=== PATIENT | male | born 1940 | race Caucasian/White ===

== ENCOUNTER 2020-04-06 07:54 | Inpatient (IN) ==
[2020-04-06] MEDS ORDERED: *HR* FentaNYL (PF) 100 MCG/2 ML VIAL IVP ONE (08:41)
[2020-04-06 09:14] LABS: Bilirubin,Urine Negative (Negative); Blood,Urine Negative (Negative); Clarity,Urine Clear (Clear); Color,Urine Yellow (Yellow); Glucose,Urine (UA) Normal (Normal); Ketones,Urine Negative (Negative); Leukocyte Esterase,Urine Negative (Negative); Nitrite,Urine Negative (Negative); Protein,Urine 70 mg/dL (Neg-Trace); Squamous Epithelial Cell,Urine Few per hpf (None-Few); Urobilinogen,Urine Normal (Normal); WBC,Urine 0-3 per hpf (0-3)
[2020-04-06 09:14] LABS: Basophils % 0.2 %
[2020-04-06 09:16] LABS: Hematocrit 33.6 % (37.5-50.1); Hemoglobin 10.5 g/dL (12.9-16.9); Immature Granulocytes % 2.9 % (0-4); Immature Platelets 10.2 % (1.1-6.1); Lymphocytes # 0.3 K/mcL (0.6-4.6); Lymphocytes % 2.7 %; Mean Corpuscular HGB Conc 31.3 g/dL (31.6-35.5); Mean Corpuscular Hemoglobin 31.6 pg (28.0-33.3); Mean Corpuscular Volume 101.2 fL (83.0-100.0); Mean Platelet Volume 12.6 fL (9.4-12.4); Monocytes # 0.8 K/mcL (0.0-1.3); Monocytes % 8.1 %; Red Blood Count 3.32 M/mcL (4.19-5.50); Red Cell Distribution Width 14.5 % (11.5-14.5); Segmented Neutrophils % 86.1 %; White Blood Count 10.4 K/mcL (4.3-11.1)
[2020-04-06 09:17] LABS: Platelet Count 71 K/mcL (140-400)
[2020-04-06 09:23] LABS: Activated Partial Thrombo Time 39.7 Seconds (26.0-36.0)
[2020-04-06 09:29] LABS: Prothrombin Time 48.1 Seconds (9.4-12.1)
[2020-04-06 09:30] LABS: Calcium 8.8 mg/dL (8.6-10.3); INR 4.3
[2020-04-06 09:31] LABS: Albumin 3.6 g/dL (3.5-5.7); Albumin/Globulin Ratio 0.9 (1.1-2.2); Bilirubin,Direct 0.3 mg/dL (0.0-0.2); Bilirubin,Indirect 0.5 mg/dL (0.0-1.0); Bilirubin,Total 0.8 mg/dL (0.3-1.0); Globulin 3.9 g/dL (2.4-3.5); Total Protein 7.5 g/dL (6.4-8.9)
[2020-04-06] MEDS ORDERED: Piperacillin/Tazobactam 3.375 GM in 0.9 % Sodium Chloride Mini Bag 100 ML IVPB ONE (14:02)
[2020-04-06] MEDS ORDERED: Naloxone 0.4 MG/ML INJ IVP PRN (15:01)
[2020-04-06] MEDS ORDERED: Acetaminophen 325 MG TABLET PO PRN ×2 (15:01→16:24)
[2020-04-06] MEDS ORDERED: *HR* HYDROcodone/Acet 5/325 mg TABLET PO PRN ×2 (15:01→16:24)
[2020-04-06] MEDS ORDERED: Ondansetron 4 MG/2 ML VIAL IVP PRN (15:01)
[2020-04-06] MEDS ORDERED: 0.9 % Sodium Chloride 500 ML IVC SCH (15:15)
[2020-04-06] MEDS ORDERED: *HR* HYDROcodone/Acet 5/325 mg TABLET PO STA (16:30)
[2020-04-06] MEDS ORDERED: Famotidine 20 MG/2 ML VIAL IVP ONE (16:53)
[2020-04-06] MEDS ORDERED: Acetaminophen IV 1,000 MG/100 ML INFUS..BTL IVPB ONE (18:11)
[2020-04-06] MEDS: Ketorolac OPTH Soln 5 ML BOTTLE RIGHT EYE SCH (21:00)
[2020-04-06] MEDS: Dexamethasone OPTH Drop 5 ML BOTTLE RIGHT EYE SCH (21:00)
[2020-04-06] MEDS: *HR* HYDROcodone/Acet 5/325 mg TABLET PO PRN (23:15)
[2020-04-06 23:58] LABS: Acinetobacter baumannii by PCR Not Detected (Not Detect); Enterobacter cloacae Cmplx PCR Not Detected (Not Detect); Enterobacteriaceae by PCR Not Detected (Not Detect); Enterococcus by PCR Not Detected (Not Detect); Escherichia coli by PCR Not Detected (Not Detect); Staphylococcus aureus by PCR Not Detected (Not Detect); Staphylococcus by PCR Not Detected (Not Detect); Streptococcus agalactiae(B)PCR DETECTED (Not Detect); Streptococcus by PCR DETECTED (Not Detect); Streptococcus pneumoniae PCR Not Detected (Not Detect); Streptococcus pyogenes (A) PCR Not Detected (Not Detect)
[2020-04-06 23:59] LABS: Candida albicans by PCR Not Detected (Not Detect); Candida glabrata by PCR Not Detected (Not Detect); Candida krusei by PCR Not Detected (Not Detect); Candida parapsilosis by PCR Not Detected (Not Detect); Candida tropicalis by PCR Not Detected (Not Detect); Klebsiella oxytoca by PCR Not Detected (Not Detect); Klebsiella pneumoniae by PCR Not Detected (Not Detect); Proteus by PCR Not Detected (Not Detect); Pseudomonas aeruginosa by PCR Not Detected (Not Detect); Serratia marcescens by PCR Not Detected (Not Detect)
[2020-04-07] MEDS: *HR* HYDROcodone/Acet 5/325 mg TABLET PO PRN (06:51)
[2020-04-07] MEDS ORDERED: Perflutren Lipid Microsphere 1.3 ML in 0.9 % Sodium Chloride 8.7 ML IVP PRN (07:35)
[2020-04-07] MEDS: Acetaminophen 325 MG TABLET PO PRN ×2 (07:38→17:57)
[2020-04-07] MEDS: Ketorolac OPTH Soln 5 ML BOTTLE RIGHT EYE SCH ×2 (07:46→19:43)
[2020-04-07] MEDS: Dexamethasone OPTH Drop 5 ML BOTTLE RIGHT EYE SCH ×2 (07:46→19:43)
[2020-04-07] MEDS ORDERED: Vancomycin 1,500 MG/265 ML IV.SOLN IVPB ONE (09:00)
[2020-04-07 09:07] LABS: Basophils % 0.5 %; Hematocrit 32.4 % (37.5-50.1); Hemoglobin 10.5 g/dL (12.9-16.9); Immature Granulocytes % 1.5 % (0-4); Lymphocytes # 0.2 K/mcL (0.6-4.6); Lymphocytes % 2.6 %; Mean Corpuscular HGB Conc 32.4 g/dL (31.6-35.5); Mean Corpuscular Hemoglobin 31.8 pg (28.0-33.3); Mean Corpuscular Volume 98.2 fL (83.0-100.0); Monocytes # 0.2 K/mcL (0.0-1.3); Monocytes % 3.1 %; Red Cell Distribution Width 14.6 % (11.5-14.5); Segmented Neutrophils % 92.3 %; White Blood Count 5.9 K/mcL (4.3-11.1)
[2020-04-07 09:10] LABS: Neutrophils # 5.5 K/mcL (1.6-8.9); Platelet Count 60 K/mcL (140-400)
[2020-04-07 09:12] LABS: Albumin 3.5 g/dL (3.5-5.7); Albumin/Globulin Ratio 0.9 (1.1-2.2); Bilirubin,Total 1.2 mg/dL (0.3-1.0); Calcium 8.8 mg/dL (8.6-10.3); Chol/HDL Ratio 3.2 (0-4.9); Globulin 3.9 g/dL (2.4-3.5); Magnesium 1.9 mg/dL (1.6-2.6); Potassium 4.2 mEq/L (3.5-5.1); Total Protein 7.4 g/dL (6.4-8.9)
[2020-04-07 09:14] LABS: INR 5.7; Prothrombin Time 62.6 Seconds (9.4-12.1)
[2020-04-07 09:23] LABS: Thyroid Stimulating Hormone 4.158 mcIU/mL (0.340-5.600)
[2020-04-07 09:27] LABS: Large Platelets Present (Not Present); Platelet Estimate Decreased (Normal); Toxic Granulation Present (Not Present)
[2020-04-07 09:28] LABS: Troponin I 0.48 ng/mL (< 0.04)
[2020-04-07 09:32] LABS: Estimated Average Glucose 126 mg/dl
[2020-04-07 10:16] LABS: Adenovirus Not Detected (Not Detect); Bordetella Pertussis Not Detected (Not Detect); Chlamydophila pneumoniae Not Detected (Not Detect); Coronavirus 229E Not Detected (Not Detect); Coronavirus HKU1 Not Detected (Not Detect); Coronavirus NL63 Not Detected (Not Detect); Coronavirus OC43 Not Detected (Not Detect); Human Metapneumovirus Not Detected (Not Detect); Human Rhinovirus/Enterovirus Not Detected (Not Detect); Influenza A Subtype 2009 H1 Not Detected (Not Detect); Influenza B Not Detected (Not Detect); Mycoplasma pneumoniae Not Detected (Not Detect); Parainfluenza Virus 1 Not Detected (Not Detect); Parainfluenza Virus 2 Not Detected (Not Detect); Parainfluenza Virus 3 Not Detected (Not Detect); Parainfluenza Virus 4 Not Detected (Not Detect); Respiratory Syncytial Virus Not Detected (Not Detect); SARS-CoV-2 Not Detected (Not Detect)
[2020-04-07] MEDS ORDERED: Aspirin Enteric Coated 81 MG Tablet PO SCH (12:00)
[2020-04-07] MEDS: Cefepime HCl 2,000 MG in 0.9 % Sodium Chloride Mini Bag 100 ML IVPB SCH (12:04)
[2020-04-07] MEDS: Metoprolol XL (24 HR) Succ 25 MG TAB.ER.24H PO SCH (12:17)
[2020-04-07] MEDS ORDERED: Piperacillin/Tazobactam 3.375 GM in 0.9 % Sodium Chloride Mini Bag 100 ML IVPB SCH ×2 (16:00)
[2020-04-07] MEDS: MetroNIDAZOLE 500 MG/100 ML 500 MG/100 ML BAG IVPB SCH ×2 (17:14→23:38)
[2020-04-07] MEDS ORDERED: MetroNIDAZOLE 500 MG/100 ML 500 MG/100 ML BAG IVPB SCH (18:00)
[2020-04-08] MEDS: Cefepime HCl 2,000 MG in 0.9 % Sodium Chloride Mini Bag 100 ML IVPB SCH ×3 (00:37→23:11)
[2020-04-08 05:34] LABS: Hemoglobin 10.4 g/dL (12.9-16.9)
[2020-04-08 05:36] LABS: Immature Platelets 14.9 % (1.1-6.1); Mean Corpuscular HGB Conc 32.5 g/dL (31.6-35.5); Mean Corpuscular Hemoglobin 32.5 pg (28.0-33.3); Mean Platelet Volume 13.9 fL (9.4-12.4); Red Cell Distribution Width 14.7 % (11.5-14.5); White Blood Count 6.5 K/mcL (4.3-11.1)
[2020-04-08 05:37] LABS: INR 6.9
[2020-04-08 05:38] LABS: Prothrombin Time 76.1 Seconds (9.4-12.1)
[2020-04-08 05:44] LABS: Platelet Count 68 K/mcL (140-400)
[2020-04-08 05:49] LABS: Albumin 3.1 g/dL (3.5-5.7); Albumin/Globulin Ratio 0.8 (1.1-2.2); Bilirubin,Total 0.9 mg/dL (0.3-1.0); Calcium 8.7 mg/dL (8.6-10.3); Globulin 3.9 g/dL (2.4-3.5); Potassium 4.3 mEq/L (3.5-5.1)
[2020-04-08 06:41] LABS: Monocytes # 0.7 K/mcL (0.0-1.3); Neutrophils # 4.4 K/mcL (1.6-8.9); Platelet Estimate Decreased (Normal); Reactive Lymphocytes Present (Not Present); Toxic Vacuolation Present (Not Present)
[2020-04-08] MEDS: Ketorolac OPTH Soln 5 ML BOTTLE RIGHT EYE SCH ×2 (07:55→20:03)
[2020-04-08] MEDS: Dexamethasone OPTH Drop 5 ML BOTTLE RIGHT EYE SCH ×2 (07:55→20:03)
[2020-04-08] MEDS: *HR* HYDROcodone/Acet 5/325 mg TABLET PO PRN (08:30)
[2020-04-08] MEDS ORDERED: Vancomycin 1,250 MG/262.5 ML IV.SOLN IVPB SCH (09:00)
[2020-04-08] MEDS: Metoprolol XL (24 HR) Succ 25 MG TAB.ER.24H PO SCH (09:14)
[2020-04-08] MEDS ORDERED: *HR* Phytonadione 5 MG TABLET PO ONE ×2 (09:45→17:34)
[2020-04-08] MEDS ORDERED: Metoprolol XL (24 HR) Succ 25 MG TAB.ER.24H PO ONE (10:00)
[2020-04-08] MEDS: MetroNIDAZOLE 500 MG/100 ML 500 MG/100 ML BAG IVPB SCH ×3 (10:15→23:11)
[2020-04-08] MEDS ORDERED: *HR* LORazepam 2 MG/ML VIAL IVP STA (14:06)
[2020-04-08 17:12] LABS: INR 6.2
[2020-04-08 17:13] LABS: Prothrombin Time 67.9 Seconds (9.4-12.1)
[2020-04-08] MEDS ORDERED: *HR* LORazepam 2 MG/ML VIAL IVP PRN (18:00)
[2020-04-08] MEDS: Acetaminophen 325 MG TABLET PO PRN (18:54)
[2020-04-09 02:32] LABS: Basophils % 0.3 %; Hemoglobin 9.9 g/dL (12.9-16.9); Mean Corpuscular Volume 97.4 fL (83.0-100.0)
[2020-04-09 02:34] LABS: Eosinophils % 0.1 %; Hematocrit 30.3 % (37.5-50.1); Immature Granulocytes % 1.5 % (0-4); Immature Platelets 13.9 % (1.1-6.1); Lymphocytes % 14.5 %; Mean Corpuscular HGB Conc 32.7 g/dL (31.6-35.5); Mean Corpuscular Hemoglobin 31.8 pg (28.0-33.3); Mean Platelet Volume 13.9 fL (9.4-12.4); Monocytes # 0.9 K/mcL (0.0-1.3); Neutrophils # 4.8 K/mcL (1.6-8.9); Red Blood Count 3.11 M/mcL (4.19-5.50); Red Cell Distribution Width 14.9 % (11.5-14.5); Segmented Neutrophils % 70.6 %; White Blood Count 6.8 K/mcL (4.3-11.1)
[2020-04-09 02:38] LABS: Platelet Count 67 K/mcL (140-400)
[2020-04-09 02:43] LABS: INR 3.4; Prothrombin Time 38.1 Seconds (9.4-12.1)
[2020-04-09 02:50] LABS: Albumin/Globulin Ratio 0.8 (1.1-2.2); Calcium 8.5 mg/dL (8.6-10.3); Globulin 3.8 g/dL (2.4-3.5); Potassium 4.2 mEq/L (3.5-5.1); Total Protein 6.8 g/dL (6.4-8.9)
[2020-04-09] MEDS: Acetaminophen 325 MG TABLET PO PRN ×2 (10:35→17:15)
[2020-04-09] MEDS: Metoprolol XL (24 HR) Succ 50 MG TAB.ER.24H PO SCH (10:35)
[2020-04-09] MEDS: MetroNIDAZOLE 500 MG/100 ML 500 MG/100 ML BAG IVPB SCH ×3 (10:36→23:36)
[2020-04-09] MEDS: Dexamethasone OPTH Drop 5 ML BOTTLE RIGHT EYE SCH ×2 (11:28→19:54)
[2020-04-09] MEDS: Ketorolac OPTH Soln 5 ML BOTTLE RIGHT EYE SCH ×2 (11:28→19:54)
[2020-04-09] MEDS: Cefepime HCl 2,000 MG in 0.9 % Sodium Chloride Mini Bag 100 ML IVPB SCH ×2 (12:09→23:37)
[2020-04-09] MEDS ORDERED: Warfarin perPT PO PRN (18:00)
[2020-04-09] MEDS ORDERED: QUEtiapine Fumarate 25 MG TABLET PO SCH (20:00)
[2020-04-10 01:46] LABS: Basophils % 0.3 %; Eosinophils # 0.2 K/mcL (0.0-0.6); Eosinophils % 2.7 %; Hematocrit 30.3 % (37.5-50.1); Hemoglobin 9.9 g/dL (12.9-16.9); Immature Granulocytes % 0.5 % (0-4); Lymphocytes # 1.3 K/mcL (0.6-4.6); Lymphocytes % 20.3 %; Mean Corpuscular HGB Conc 32.7 g/dL (31.6-35.5); Mean Corpuscular Hemoglobin 31.8 pg (28.0-33.3); Mean Corpuscular Volume 97.4 fL (83.0-100.0); Mean Platelet Volume 13.2 fL (9.4-12.4); Monocytes % 11.8 %; Neutrophils # 4.1 K/mcL (1.6-8.9); Red Blood Count 3.11 M/mcL (4.19-5.50); Red Cell Distribution Width 14.8 % (11.5-14.5); Segmented Neutrophils % 64.4 %; White Blood Count 6.3 K/mcL (4.3-11.1)
[2020-04-10 01:52] LABS: Monocytes # 0.7 K/mcL (0.0-1.3); Platelet Count 77 K/mcL (140-400)
[2020-04-10 01:56] LABS: INR 1.8
[2020-04-10 02:07] LABS: Albumin/Globulin Ratio 0.8 (1.1-2.2); Bilirubin,Total 1.1 mg/dL (0.3-1.0); Calcium 8.5 mg/dL (8.6-10.3); Globulin 3.7 g/dL (2.4-3.5); Potassium 3.9 mEq/L (3.5-5.1); Total Protein 6.7 g/dL (6.4-8.9)
[2020-04-10] MEDS: *HR* Enoxaparin 100 MG/ML SYRINGE SQ SCH ×2 (09:15→16:35)
[2020-04-10] MEDS: Metoprolol XL (24 HR) Succ 50 MG TAB.ER.24H PO SCH (09:16)
[2020-04-10] MEDS: MetroNIDAZOLE 500 MG/100 ML 500 MG/100 ML BAG IVPB SCH ×3 (09:16→23:57)
[2020-04-10] MEDS: Dexamethasone OPTH Drop 5 ML BOTTLE RIGHT EYE SCH ×2 (09:17→20:04)
[2020-04-10] MEDS: Ketorolac OPTH Soln 5 ML BOTTLE RIGHT EYE SCH ×2 (09:17→20:04)
[2020-04-10] MEDS: Acetaminophen 325 MG TABLET PO PRN ×2 (09:19→16:35)
[2020-04-10] MEDS: Cefepime HCl 2,000 MG in 0.9 % Sodium Chloride Mini Bag 100 ML IVPB SCH ×2 (12:21→23:56)
[2020-04-10] MEDS: Furosemide 40 MG TABLET PO SCH (12:45)
[2020-04-10] MEDS ORDERED: *HR* Warfarin 5 MG TABLET PO ONE (18:00)
[2020-04-10 19:06] LABS: Folate 14.1 ng/mL (3.0-16.0)
[2020-04-10 19:07] LABS: Vitamin B12 > 1500 pg/mL (250-1100)
[2020-04-11] MEDS: Acetaminophen 325 MG TABLET PO PRN ×2 (02:48→16:07)
[2020-04-11 04:31] LABS: Basophils % 0.3 %; Immature Granulocytes % 0.8 % (0-4)
[2020-04-11 04:33] LABS: Eosinophils # 0.2 K/mcL (0.0-0.6); Eosinophils % 2.1 %; Hematocrit 30.3 % (37.5-50.1); Hemoglobin 9.9 g/dL (12.9-16.9); Immature Platelets 11.2 % (1.1-6.1); Lymphocytes % 12.6 %; Mean Corpuscular HGB Conc 32.7 g/dL (31.6-35.5); Mean Corpuscular Hemoglobin 31.3 pg (28.0-33.3); Mean Corpuscular Volume 95.9 fL (83.0-100.0); Mean Platelet Volume 12.7 fL (9.4-12.4); Monocytes # 0.8 K/mcL (0.0-1.3); Monocytes % 10.1 %; Neutrophils # 5.9 K/mcL (1.6-8.9); Red Blood Count 3.16 M/mcL (4.19-5.50); Red Cell Distribution Width 14.8 % (11.5-14.5); Segmented Neutrophils % 74.1 %
[2020-04-11 04:40] LABS: INR 2.2; Platelet Count 99 K/mcL (140-400); Prothrombin Time 24.5 Seconds (9.4-12.1)
[2020-04-11 04:52] LABS: Albumin 2.9 g/dL (3.5-5.7); Albumin/Globulin Ratio 0.8 (1.1-2.2); Bilirubin,Total 1.2 mg/dL (0.3-1.0); Calcium 8.5 mg/dL (8.6-10.3); Globulin 3.5 g/dL (2.4-3.5); Magnesium 2.1 mg/dL (1.6-2.6); Potassium 4.1 mEq/L (3.5-5.1); Total Protein 6.4 g/dL (6.4-8.9)
[2020-04-11 05:44] LABS: Hepatitis B Surface Antigen Nonreactive (Nonreactive)
[2020-04-11] MEDS: *HR* Enoxaparin 100 MG/ML SYRINGE SQ SCH (05:57)
[2020-04-11 06:10] LABS: Hepatitis B Core IgM Nonreactive (Nonreactive)
[2020-04-11 06:11] LABS: Hepatitis A Antibody IgM Nonreactive (Nonreactive); Hepatitis C Virus Antibody Nonreactive (Nonreactive)
[2020-04-11] MEDS: Furosemide 40 MG TABLET PO SCH ×3 (11:27→16:11)
[2020-04-11] MEDS: Metoprolol XL (24 HR) Succ 50 MG TAB.ER.24H PO SCH ×3 (11:27→16:11)
[2020-04-11] MEDS: Dexamethasone OPTH Drop 5 ML BOTTLE RIGHT EYE SCH ×2 (11:28→19:22)
[2020-04-11] MEDS: Ketorolac OPTH Soln 5 ML BOTTLE RIGHT EYE SCH ×2 (11:28→19:22)
[2020-04-11] MEDS ORDERED: Acetaminophen IV 1,000 MG/100 ML INFUS..BTL IVPB ONE (15:49)
[2020-04-11] MEDS: cefTRIAXone 2,000 MG in 0.9 % Sodium Chloride Mini Bag 100 ML IVPB SCH (16:03)
[2020-04-11] MEDS: metroNIDAZOLE 500 MG TABLET PO SCH ×2 (16:04→19:26)
[2020-04-11] MEDS ORDERED: *HR* Warfarin 2.5 MG TABLET PO ONE (18:00)
[2020-04-11] MEDS: Sennosides/Docusate Sodium TABLET PO SCH (19:26)
[2020-04-11] MEDS: Melatonin 3 MG TABLET PO SCH (19:26)
[2020-04-11] MEDS: MetroNIDAZOLE 500 MG/100 ML 500 MG/100 ML BAG IVPB SCH (20:58)
[2020-04-11] MEDS ORDERED: Bisacodyl 10 MG RECTAL SUPPOSITORY RC SCH (21:00)
[2020-04-12 05:43] LABS: Basophils % 0.2 %; Hematocrit 32.5 % (37.5-50.1); Hemoglobin 10.6 g/dL (12.9-16.9); Immature Granulocytes % 0.7 % (0-4); Lymphocytes # 1.2 K/mcL (0.6-4.6); Lymphocytes % 13.2 %; Mean Corpuscular HGB Conc 32.6 g/dL (31.6-35.5); Mean Corpuscular Hemoglobin 31.4 pg (28.0-33.3); Mean Corpuscular Volume 96.2 fL (83.0-100.0); Mean Platelet Volume 12.6 fL (9.4-12.4); Monocytes # 0.8 K/mcL (0.0-1.3); Monocytes % 9.1 %; Neutrophils # 6.8 K/mcL (1.6-8.9); Platelet Count 144 K/mcL (140-400); Red Blood Count 3.38 M/mcL (4.19-5.50); Red Cell Distribution Width 14.8 % (11.5-14.5); Segmented Neutrophils % 76.8 %; White Blood Count 8.9 K/mcL (4.3-11.1)
[2020-04-12 05:47] LABS: INR 2.5; Prothrombin Time 28.7 Seconds (9.4-12.1)
[2020-04-12 05:59] LABS: Albumin 3.1 g/dL (3.5-5.7); Albumin/Globulin Ratio 0.8 (1.1-2.2); Bilirubin,Total 0.8 mg/dL (0.3-1.0); Globulin 3.8 g/dL (2.4-3.5); Potassium 3.9 mEq/L (3.5-5.1); Total Protein 6.9 g/dL (6.4-8.9)
[2020-04-12] MEDS: Dexamethasone OPTH Drop 5 ML BOTTLE RIGHT EYE SCH (08:50)
[2020-04-12] MEDS: Ketorolac OPTH Soln 5 ML BOTTLE RIGHT EYE SCH (08:50)
[2020-04-12] MEDS: cefTRIAXone 2,000 MG in 0.9 % Sodium Chloride Mini Bag 100 ML IVPB SCH (08:51)
[2020-04-12] MEDS: Metoprolol XL (24 HR) Succ 50 MG TAB.ER.24H PO SCH (08:52)
[2020-04-12] MEDS: metroNIDAZOLE 500 MG TABLET PO SCH ×3 (08:52→21:05)
[2020-04-12] MEDS: Furosemide 40 MG TABLET PO SCH (08:52)
[2020-04-12] MEDS: Sennosides/Docusate Sodium TABLET PO SCH ×2 (08:52→21:05)
[2020-04-12] MEDS ORDERED: Bisacodyl 10 MG RECTAL SUPPOSITORY RC ONE (18:00)
[2020-04-12] MEDS ORDERED: *HR* Warfarin 2.5 MG TABLET PO ONE (18:00)
[2020-04-12] MEDS: Melatonin 3 MG TABLET PO SCH (21:05)
[2020-04-13 07:15] LABS: Prothrombin Time 33.9 Seconds (9.4-12.1)
[2020-04-13 07:26] LABS: Basophils % 0.2 %; Hematocrit 34.6 % (37.5-50.1); Hemoglobin 11.3 g/dL (12.9-16.9); Immature Granulocytes % 0.7 % (0-4); Lymphocytes # 1.3 K/mcL (0.6-4.6); Lymphocytes % 14.3 %; Mean Corpuscular HGB Conc 32.7 g/dL (31.6-35.5); Mean Corpuscular Hemoglobin 31.8 pg (28.0-33.3); Mean Corpuscular Volume 97.5 fL (83.0-100.0); Monocytes # 0.9 K/mcL (0.0-1.3); Monocytes % 10.7 %; Neutrophils # 6.5 K/mcL (1.6-8.9); Platelet Count 166 K/mcL (140-400); Red Blood Count 3.55 M/mcL (4.19-5.50); Red Cell Distribution Width 14.9 % (11.5-14.5); Segmented Neutrophils % 74.1 %; White Blood Count 8.8 K/mcL (4.3-11.1)
[2020-04-13 08:23] LABS: Potassium 4.3 mEq/L (3.5-5.1)
[2020-04-13 08:59] LABS: Albumin 3.1 g/dL (3.5-5.7); Albumin/Globulin Ratio 0.8 (1.1-2.2); Bilirubin,Total 0.8 mg/dL (0.3-1.0); Total Protein 7.1 g/dL (6.4-8.9)
[2020-04-13] MEDS: cefTRIAXone 2,000 MG in 0.9 % Sodium Chloride Mini Bag 100 ML IVPB SCH (10:00)
[2020-04-13] MEDS: Sennosides/Docusate Sodium TABLET PO SCH ×2 (10:01→21:10)
[2020-04-13] MEDS: Metoprolol XL (24 HR) Succ 50 MG TAB.ER.24H PO SCH (10:01)
[2020-04-13] MEDS: Furosemide 40 MG TABLET PO SCH (10:01)
[2020-04-13] MEDS: metroNIDAZOLE 500 MG TABLET PO SCH ×3 (10:01→21:10)
[2020-04-13] MEDS ORDERED: *HR* Warfarin 1 MG TABLET PO ONE (18:00)
[2020-04-13] MEDS: Melatonin 3 MG TABLET PO SCH (21:10)
[2020-04-14] MEDS: Acetaminophen 325 MG TABLET PO PRN (02:40)
[2020-04-14] MEDS: Furosemide 40 MG TABLET PO SCH (08:45)
[2020-04-14] MEDS: Sennosides/Docusate Sodium TABLET PO SCH ×2 (08:45→21:18)
[2020-04-14] MEDS: Metoprolol XL (24 HR) Succ 50 MG TAB.ER.24H PO SCH (08:45)
[2020-04-14] MEDS: metroNIDAZOLE 500 MG TABLET PO SCH (08:45)
[2020-04-14] MEDS: cefTRIAXone 2,000 MG in 0.9 % Sodium Chloride Mini Bag 100 ML IVPB SCH (08:45)
[2020-04-14 11:21] LABS: INR 3.4; Prothrombin Time 38.2 Seconds (9.4-12.1)
[2020-04-14 11:36] LABS: Calcium 8.8 mg/dL (8.6-10.3); Potassium 3.9 mEq/L (3.5-5.1)
[2020-04-14] MEDS: Melatonin 3 MG TABLET PO SCH (21:18)
[2020-04-15 09:13] LABS: INR 3.7; Prothrombin Time 40.8 Seconds (9.4-12.1)
[2020-04-15] MEDS: cefTRIAXone 2,000 MG in 0.9 % Sodium Chloride Mini Bag 100 ML IVPB SCH (09:31)
[2020-04-15] MEDS: Furosemide 40 MG TABLET PO SCH (09:31)
[2020-04-15] MEDS: Sennosides/Docusate Sodium TABLET PO SCH ×2 (09:31→22:17)
[2020-04-15] MEDS: Metoprolol XL (24 HR) Succ 50 MG TAB.ER.24H PO SCH (09:31)
[2020-04-15] MEDS: Melatonin 3 MG TABLET PO SCH (22:17)
[2020-04-16 02:05] LABS: Basophils % 0.4 %; Hematocrit 32.7 % (37.5-50.1); Hemoglobin 10.9 g/dL (12.9-16.9); Immature Granulocytes % 0.7 % (0-4); Lymphocytes # 1.4 K/mcL (0.6-4.6); Lymphocytes % 18.8 %; Mean Corpuscular HGB Conc 33.3 g/dL (31.6-35.5); Mean Corpuscular Hemoglobin 32.4 pg (28.0-33.3); Mean Corpuscular Volume 97.3 fL (83.0-100.0); Mean Platelet Volume 11.4 fL (9.4-12.4); Monocytes # 0.8 K/mcL (0.0-1.3); Monocytes % 10.9 %; Neutrophils # 5.3 K/mcL (1.6-8.9); Platelet Count 186 K/mcL (140-400); Red Blood Count 3.36 M/mcL (4.19-5.50); Red Cell Distribution Width 14.8 % (11.5-14.5); Segmented Neutrophils % 69.2 %; White Blood Count 7.6 K/mcL (4.3-11.1)
[2020-04-16 02:06] LABS: INR 3.5
[2020-04-16 02:29] LABS: BUN/Creatinine Ratio 32 (6-26); Blood Urea Nitrogen 42 mg/dL (8-23); Calcium 8.5 mg/dL (8.6-10.3); Carbon Dioxide 26 mEq/L (23-29); Chloride 106 mEq/L (98-107); Glucose 105 mg/dL (70-105); Osmolality,Calculated 297 (280-300); Potassium 3.9 mEq/L (3.5-5.1); Sodium 138 mEq/L (136-145); eGFR For African Americans > 60 (> 60); eGFR For Non-African Americans 52 (> 60)
[2020-04-16] MEDS: Sennosides/Docusate Sodium TABLET PO SCH ×2 (09:22→21:52)
[2020-04-16] MEDS: Furosemide 40 MG TABLET PO SCH (09:22)
[2020-04-16] MEDS: cefTRIAXone 2,000 MG in 0.9 % Sodium Chloride Mini Bag 100 ML IVPB SCH (09:22)
[2020-04-16] MEDS: Metoprolol XL (24 HR) Succ 50 MG TAB.ER.24H PO SCH (09:25)
[2020-04-16] MEDS: Acetaminophen 325 MG TABLET PO PRN ×2 (10:46→21:53)
[2020-04-16] MEDS: Melatonin 3 MG TABLET PO SCH (21:52)
[2020-04-17 02:45] LABS: INR 3.3; Prothrombin Time 36.6 Seconds (9.4-12.1)
[2020-04-17] MEDS: Metoprolol XL (24 HR) Succ 50 MG TAB.ER.24H PO SCH (09:39)
[2020-04-17] MEDS: Furosemide 40 MG TABLET PO SCH (09:39)
[2020-04-17] MEDS: Sennosides/Docusate Sodium TABLET PO SCH ×2 (09:39→20:58)
[2020-04-17] MEDS: cefTRIAXone 2,000 MG in 0.9 % Sodium Chloride Mini Bag 100 ML IVPB SCH (09:39)
[2020-04-17] MEDS: Melatonin 3 MG TABLET PO SCH (20:58)
[2020-04-18] MEDS: Furosemide 40 MG TABLET PO SCH (09:01)
[2020-04-18] MEDS: Metoprolol XL (24 HR) Succ 50 MG TAB.ER.24H PO SCH (09:01)
[2020-04-18] MEDS: amLODIPine 5 MG TABLET PO SCH (09:01)
[2020-04-18] MEDS: Sennosides/Docusate Sodium TABLET PO SCH ×2 (09:02→20:40)
[2020-04-18] MEDS: cefTRIAXone 2,000 MG in 0.9 % Sodium Chloride Mini Bag 100 ML IVPB SCH (09:02)
[2020-04-18 09:07] LABS: Basophils % 0.4 %; Immature Granulocytes % 0.5 % (0-4); Lymphocytes # 1.2 K/mcL (0.6-4.6); Lymphocytes % 14.6 %; Mean Corpuscular HGB Conc 31.4 g/dL (31.6-35.5); Mean Corpuscular Hemoglobin 30.9 pg (28.0-33.3); Mean Corpuscular Volume 98.3 fL (83.0-100.0); Mean Platelet Volume 11.4 fL (9.4-12.4); Monocytes # 0.8 K/mcL (0.0-1.3); Monocytes % 9.7 %; Neutrophils # 5.9 K/mcL (1.6-8.9); Platelet Count 224 K/mcL (140-400); Red Blood Count 3.56 M/mcL (4.19-5.50); Red Cell Distribution Width 14.5 % (11.5-14.5); Segmented Neutrophils % 74.8 %; White Blood Count 7.9 K/mcL (4.3-11.1)
[2020-04-18 09:13] LABS: INR 2.8
[2020-04-18 09:25] LABS: BUN/Creatinine Ratio 28 (6-26); Blood Urea Nitrogen 35 mg/dL (8-23); Calcium 9.1 mg/dL (8.6-10.3); Carbon Dioxide 25 mEq/L (23-29); Chloride 104 mEq/L (98-107); Glucose 116 mg/dL (70-105); Osmolality,Calculated 293 (280-300); Potassium 4.1 mEq/L (3.5-5.1); Sodium 137 mEq/L (136-145); eGFR For African Americans > 60 (> 60); eGFR For Non-African Americans 54 (> 60)
[2020-04-18] MEDS ORDERED: *HR* Warfarin 1 MG TABLET PO ONE (18:00)
[2020-04-18] MEDS: Melatonin 3 MG TABLET PO SCH (20:40)
[2020-04-19] MEDS: amLODIPine 5 MG TABLET PO SCH (07:27)
[2020-04-19] MEDS: Acetaminophen 325 MG TABLET PO PRN (07:27)
[2020-04-19] MEDS: Metoprolol XL (24 HR) Succ 50 MG TAB.ER.24H PO SCH (07:28)
[2020-04-19] MEDS: cefTRIAXone 2,000 MG in 0.9 % Sodium Chloride Mini Bag 100 ML IVPB SCH (07:28)
[2020-04-19] MEDS: Sennosides/Docusate Sodium TABLET PO SCH ×2 (07:28→20:27)
[2020-04-19] MEDS: Furosemide 40 MG TABLET PO SCH (07:28)
[2020-04-19 10:08] LABS: INR 2.3; Prothrombin Time 26.1 Seconds (9.4-12.1)
[2020-04-19] MEDS ORDERED: *HR* Warfarin 1 MG TABLET PO ONE (18:00)
[2020-04-19] MEDS ORDERED: *HR* Warfarin 2.5 MG TABLET PO ONE (18:00)
[2020-04-19 18:20] VITALS: BP 151/80
[2020-04-19] MEDS: Melatonin 3 MG TABLET PO SCH (20:27)
[2020-04-19 20:36] LABS: Adenovirus Not Detected (Not Detect); Bordetella Pertussis Not Detected (Not Detect); Chlamydophila pneumoniae Not Detected (Not Detect); Coronavirus 229E Not Detected (Not Detect); Coronavirus HKU1 Not Detected (Not Detect); Coronavirus NL63 Not Detected (Not Detect); Coronavirus OC43 Not Detected (Not Detect); Human Metapneumovirus Not Detected (Not Detect); Human Rhinovirus/Enterovirus Not Detected (Not Detect); Influenza A Subtype 2009 H1 Not Detected (Not Detect); Influenza B Not Detected (Not Detect); Mycoplasma pneumoniae Not Detected (Not Detect); Parainfluenza Virus 1 Not Detected (Not Detect); Parainfluenza Virus 2 Not Detected (Not Detect); Parainfluenza Virus 3 Not Detected (Not Detect); Parainfluenza Virus 4 Not Detected (Not Detect); Respiratory Syncytial Virus Not Detected (Not Detect); SARS-CoV-2 Not Detected (Not Detect)
== END 2020-04-19 22:25 | DRG 444 ==
LOC: 2ANU 07:54 → EMEROOARM 07:54 → 2ANU 15:27 → SUATTDRO 04-07 13:41
PROVIDERS: ADMIT Internal Medicine; ATTEND General Practice

== ENCOUNTER 2020-04-27 18:39 | Inpatient (IN) ==
[2020-04-27] MEDS ORDERED: Naloxone 0.4 MG/ML INJ IVP PRN (21:57)
[2020-04-28] MEDS: *HR* OxyCODONE/APAP 5/325 TABLET PO PRN ×2 (05:20→21:07)
[2020-04-28 10:32] LABS: Basophils % 0.3 %; Hematocrit 32.2 % (37.5-50.1); Hemoglobin 10.4 g/dL (12.9-16.9); Immature Granulocytes % 0.5 % (0-4); Lymphocytes # 1.1 K/mcL (0.6-4.6); Lymphocytes % 18.6 %; Mean Corpuscular HGB Conc 32.3 g/dL (31.6-35.5); Mean Corpuscular Hemoglobin 31.8 pg (28.0-33.3); Mean Corpuscular Volume 98.5 fL (83.0-100.0); Mean Platelet Volume 11.5 fL (9.4-12.4); Monocytes # 0.8 K/mcL (0.0-1.3); Monocytes % 14.3 %; Neutrophils # 3.9 K/mcL (1.6-8.9); Platelet Count 184 K/mcL (140-400); Red Blood Count 3.27 M/mcL (4.19-5.50); Red Cell Distribution Width 13.7 % (11.5-14.5); Segmented Neutrophils % 66.3 %; White Blood Count 5.8 K/mcL (4.3-11.1)
[2020-04-28 10:36] LABS: INR 2.4; Prothrombin Time 26.8 Seconds (9.4-12.1)
[2020-04-28 10:48] LABS: Calcium 9.2 mg/dL (8.6-10.3); Potassium 4.7 mEq/L (3.5-5.1)
[2020-04-28 19:24] LABS: INR 2.3; Prothrombin Time 26.1 Seconds (9.4-12.1)
[2020-04-28] MEDS: Melatonin 3 MG TABLET PO SCH (21:06)
[2020-04-29 05:41] LABS: Basophils % 0.6 %; Hemoglobin 9.9 g/dL (12.9-16.9); Immature Granulocytes % 0.2 % (0-4); Lymphocytes # 1.5 K/mcL (0.6-4.6); Lymphocytes % 28.6 %; Mean Corpuscular HGB Conc 31.9 g/dL (31.6-35.5); Mean Corpuscular Hemoglobin 31.9 pg (28.0-33.3); Mean Platelet Volume 11.2 fL (9.4-12.4); Monocytes # 0.8 K/mcL (0.0-1.3); Neutrophils # 2.9 K/mcL (1.6-8.9); Platelet Count 183 K/mcL (140-400); Red Cell Distribution Width 14.2 % (11.5-14.5); Segmented Neutrophils % 55.6 %; White Blood Count 5.3 K/mcL (4.3-11.1)
[2020-04-29 05:52] LABS: INR 1.7; Prothrombin Time 19.2 Seconds (9.4-12.1)
[2020-04-29 06:07] LABS: Calcium 9.1 mg/dL (8.6-10.3); Potassium 4.3 mEq/L (3.5-5.1)
[2020-04-29] MEDS: amLODIPine 5 MG TABLET PO SCH (09:55)
[2020-04-29] MEDS: Metoprolol XL (24 HR) Succ 50 MG TAB.ER.24H PO SCH (09:55)
[2020-04-29] MEDS: Furosemide 40 MG TABLET PO SCH (09:55)
[2020-04-29] MEDS ORDERED: 0.9 % Sodium Chloride 500 ML ONE (11:36)
[2020-04-29] MEDS ORDERED: *HR* FentaNYL (PF) 100 MCG/2 ML VIAL ONE (12:00)
[2020-04-29] MEDS ORDERED: *HR* Midazolam HCl 2 MG/2 ML VIAL ONE (12:00)
[2020-04-29] MEDS ORDERED: *HR* FentaNYL (PF) 100 MCG/2 ML VIAL IVP ONE (12:01)
[2020-04-29] MEDS ORDERED: *HR* Midazolam HCl 2 MG/2 ML VIAL IVP ONE (12:01)
[2020-04-29] MEDS: DAPTOmycin 500 MG in 0.9 % Sodium Chloride 100 ML IVPB SCH (17:15)
[2020-04-29] MEDS: cefTRIAXone 2,000 MG in Water for inj. (sterile) 20 ML IVP SCH (17:15)
[2020-04-29] MEDS ORDERED: *HR* Warfarin 2.5 MG TABLET PO ONE (18:00)
[2020-04-29] MEDS ORDERED: Warfarin perPT PO PRN (18:00)
[2020-04-29] MEDS: Melatonin 3 MG TABLET PO SCH (21:22)
[2020-04-30 04:10] LABS: Basophils % 0.2 %; Hematocrit 31.8 % (37.5-50.1); Immature Granulocytes % 0.4 % (0-4); Lymphocytes # 1.5 K/mcL (0.6-4.6); Lymphocytes % 27.3 %; Mean Corpuscular HGB Conc 31.4 g/dL (31.6-35.5); Mean Corpuscular Hemoglobin 31.6 pg (28.0-33.3); Mean Corpuscular Volume 100.6 fL (83.0-100.0); Mean Platelet Volume 11.3 fL (9.4-12.4); Monocytes # 0.7 K/mcL (0.0-1.3); Monocytes % 12.2 %; Neutrophils # 3.4 K/mcL (1.6-8.9); Platelet Count 185 K/mcL (140-400); Red Blood Count 3.16 M/mcL (4.19-5.50); Red Cell Distribution Width 13.8 % (11.5-14.5); Segmented Neutrophils % 59.9 %; White Blood Count 5.6 K/mcL (4.3-11.1)
[2020-04-30 04:14] LABS: INR 1.4; Prothrombin Time 15.8 Seconds (9.4-12.1)
[2020-04-30 04:23] LABS: Calcium 9.2 mg/dL (8.6-10.3); Potassium 4.4 mEq/L (3.5-5.1)
[2020-04-30] MEDS: Furosemide 40 MG TABLET PO SCH (09:55)
[2020-04-30] MEDS: Metoprolol XL (24 HR) Succ 50 MG TAB.ER.24H PO SCH (09:55)
[2020-04-30] MEDS: amLODIPine 5 MG TABLET PO SCH (09:55)
[2020-04-30] MEDS: cefTRIAXone 2,000 MG in Water for inj. (sterile) 20 ML IVP SCH (15:19)
[2020-04-30] MEDS: DAPTOmycin 500 MG in 0.9 % Sodium Chloride 100 ML IVPB SCH (16:12)
[2020-04-30] MEDS ORDERED: *HR* Warfarin 2.5 MG TABLET PO ONE (18:00)
[2020-04-30] MEDS: Melatonin 3 MG TABLET PO SCH (20:59)
[2020-05-01 05:41] LABS: Basophils % 0.3 %; Eosinophils # 0.1 K/mcL (0.0-0.6); Eosinophils % 2.1 %; Hematocrit 32.1 % (37.5-50.1); Hemoglobin 10.1 g/dL (12.9-16.9); Immature Granulocytes % 0.3 % (0-4); Lymphocytes # 1.2 K/mcL (0.6-4.6); Mean Corpuscular HGB Conc 31.5 g/dL (31.6-35.5); Mean Corpuscular Volume 98.5 fL (83.0-100.0); Mean Platelet Volume 10.9 fL (9.4-12.4); Monocytes # 0.7 K/mcL (0.0-1.3); Monocytes % 12.2 %; Neutrophils # 3.7 K/mcL (1.6-8.9); Platelet Count 186 K/mcL (140-400); Red Blood Count 3.26 M/mcL (4.19-5.50); Red Cell Distribution Width 13.7 % (11.5-14.5); Segmented Neutrophils % 65.1 %; White Blood Count 5.7 K/mcL (4.3-11.1)
[2020-05-01 05:53] LABS: INR 1.4; Prothrombin Time 16.1 Seconds (9.4-12.1)
[2020-05-01 05:58] LABS: Calcium 9.4 mg/dL (8.6-10.3); Potassium 3.8 mEq/L (3.5-5.1)
[2020-05-01] MEDS: Metoprolol XL (24 HR) Succ 50 MG TAB.ER.24H PO SCH (09:21)
[2020-05-01] MEDS: amLODIPine 5 MG TABLET PO SCH (09:21)
[2020-05-01] MEDS: *HR* OxyCODONE/APAP 5/325 TABLET PO PRN (09:21)
[2020-05-01] MEDS: Furosemide 40 MG TABLET PO SCH (09:21)
[2020-05-01] MEDS: cefTRIAXone 2,000 MG in Water for inj. (sterile) 20 ML IVP SCH (16:51)
[2020-05-01] MEDS: DAPTOmycin 500 MG in 0.9 % Sodium Chloride 100 ML IVPB SCH (16:52)
[2020-05-01] MEDS ORDERED: *HR* Warfarin 2.5 MG TABLET PO ONE (18:00)
[2020-05-01] MEDS: Melatonin 3 MG TABLET PO SCH (20:36)
[2020-05-02 06:39] LABS: INR 1.4; Prothrombin Time 16.3 Seconds (9.4-12.1)
[2020-05-02 07:02] LABS: Calcium 9.3 mg/dL (8.6-10.3)
[2020-05-02 07:24] LABS: Basophils % 0.5 %; Eosinophils % 0.2 %; Hematocrit 31.6 % (37.5-50.1); Immature Granulocytes % 0.3 % (0-4); Lymphocytes # 1.2 K/mcL (0.6-4.6); Lymphocytes % 20.8 %; Mean Corpuscular HGB Conc 31.6 g/dL (31.6-35.5); Mean Corpuscular Hemoglobin 31.7 pg (28.0-33.3); Mean Corpuscular Volume 100.3 fL (83.0-100.0); Mean Platelet Volume 11.5 fL (9.4-12.4); Monocytes # 0.6 K/mcL (0.0-1.3); Monocytes % 9.9 %; Neutrophils # 4.1 K/mcL (1.6-8.9); Platelet Count 187 K/mcL (140-400); Red Blood Count 3.15 M/mcL (4.19-5.50); Red Cell Distribution Width 13.8 % (11.5-14.5); Segmented Neutrophils % 68.3 %
[2020-05-02] MEDS: Furosemide 40 MG TABLET PO SCH (09:52)
[2020-05-02] MEDS: amLODIPine 5 MG TABLET PO SCH (09:53)
[2020-05-02] MEDS: Metoprolol XL (24 HR) Succ 50 MG TAB.ER.24H PO SCH (09:53)
[2020-05-02 16:12] LABS: Adenovirus Not Detected (Not Detect); Bordetella Pertussis Not Detected (Not Detect); Chlamydophila pneumoniae Not Detected (Not Detect); Coronavirus 229E Not Detected (Not Detect); Coronavirus HKU1 Not Detected (Not Detect); Coronavirus NL63 Not Detected (Not Detect); Coronavirus OC43 Not Detected (Not Detect); Human Metapneumovirus Not Detected (Not Detect); Human Rhinovirus/Enterovirus Not Detected (Not Detect); Influenza A Subtype 2009 H1 Not Detected (Not Detect); Influenza B Not Detected (Not Detect); Mycoplasma pneumoniae Not Detected (Not Detect); Parainfluenza Virus 1 Not Detected (Not Detect); Parainfluenza Virus 2 Not Detected (Not Detect); Parainfluenza Virus 3 Not Detected (Not Detect); Parainfluenza Virus 4 Not Detected (Not Detect); Respiratory Syncytial Virus Not Detected (Not Detect); SARS-CoV-2 Not Detected (Not Detect)
[2020-05-02] MEDS: cefTRIAXone 2,000 MG in Water for inj. (sterile) 20 ML IVP SCH (17:32)
[2020-05-02] MEDS: DAPTOmycin 500 MG in 0.9 % Sodium Chloride 100 ML IVPB SCH (17:33)
[2020-05-02] MEDS: *HR* OxyCODONE/APAP 5/325 TABLET PO PRN (17:47)
[2020-05-02] MEDS ORDERED: *HR* Warfarin 4 MG TABLET PO ONE (18:00)
[2020-05-02 19:02] VITALS: BP 111/69
[2020-05-02] MEDS: Melatonin 3 MG TABLET PO SCH (21:33)
== END 2020-05-02 21:50 | disposition other institution (70) | DRG 552 ==
LOC: 3ANU → SUATTDRO 21:03
PROVIDERS: ADMIT Internal Medicine; ATTEND Family Medicine

== ENCOUNTER 2020-11-28 15:19 | Inpatient (IN) ==
[2020-11-28] MEDS ORDERED: Tdap (Boostrix) Vaccine 0.5 ML SYRINGE IM ONE (17:02)
[2020-11-28] MEDS ORDERED: Vancomycin 1,250 MG/262.5 ML IV.SOLN IVPB ONE (17:03)
[2020-11-28 17:26] LABS: Basophils % 0.7 %; Hematocrit 36.8 % (37.5-50.1); Hemoglobin 11.4 g/dL (12.9-16.9); Immature Granulocytes % 0.3 % (0-4); Lymphocytes # 1.4 K/mcL (0.6-4.6); Lymphocytes % 22.6 %; Mean Corpuscular Hemoglobin 30.8 pg (28.0-33.3); Mean Corpuscular Volume 99.5 fL (83.0-100.0); Mean Platelet Volume 12.7 fL (9.4-12.4); Monocytes # 0.8 K/mcL (0.0-1.3); Monocytes % 13.7 %; Neutrophils # 3.8 K/mcL (1.6-8.9); Platelet Count 109 K/mcL (140-400); Red Cell Distribution Width 17.4 % (11.5-14.5); Segmented Neutrophils % 62.7 %
[2020-11-28 17:37] LABS: INR 2.1
[2020-11-28 17:39] LABS: Activated Partial Thrombo Time 37.5 Seconds (26.0-36.0)
[2020-11-28 17:46] LABS: Calcium 9.6 mg/dL (8.6-10.3); Potassium 5.4 mEq/L (3.5-5.1)
[2020-11-28] MEDS ORDERED: Albuterol 2.5 MG/3 ML NEBULIZER IH ONE (18:34)
[2020-11-28] MEDS ORDERED: Insulin Human Regular 10 UNIT in 0.9 % Sodium Chloride 10 ML IV ONE (18:34)
[2020-11-28] MEDS ORDERED: *HR* Dextrose 50 % in Water (Vial) 50 ML VIAL IVP ONE (18:34)
[2020-11-28] MEDS ORDERED: Naloxone 0.4 MG/ML INJ IVP PRN (21:17)
[2020-11-28] MEDS ORDERED: Ondansetron 4 MG/2 ML VIAL IVP PRN (21:17)
[2020-11-28] MEDS ORDERED: Acetaminophen 325 MG TABLET PO PRN (21:17)
[2020-11-28] MEDS ORDERED: Melatonin 3 MG TABLET PO PRN (22:20)
[2020-11-29 05:59] LABS: Basophils % 0.4 %; Hematocrit 32.4 % (37.5-50.1); Hemoglobin 10.7 g/dL (12.9-16.9); Immature Granulocytes % 0.2 % (0-4); Lymphocytes # 1.2 K/mcL (0.6-4.6); Mean Corpuscular Hemoglobin 32.3 pg (28.0-33.3); Mean Corpuscular Volume 97.9 fL (83.0-100.0); Monocytes # 0.7 K/mcL (0.0-1.3); Monocytes % 14.3 %; Neutrophils # 3.2 K/mcL (1.6-8.9); Platelet Count 96 K/mcL (140-400); Red Blood Count 3.31 M/mcL (4.19-5.50); Red Cell Distribution Width 17.6 % (11.5-14.5); Segmented Neutrophils % 62.1 %; White Blood Count 5.1 K/mcL (4.3-11.1)
[2020-11-29] MEDS ORDERED: 0.9 % Sodium Chloride 1,000 ML IVC SCH (06:00)
[2020-11-29] MEDS ORDERED: *HR* Enoxaparin 40 MG/0.4 ML SYRINGE SQ SCH (06:00)
[2020-11-29 06:13] LABS: Calcium 9.2 mg/dL (8.6-10.3); Potassium 4.6 mEq/L (3.5-5.1)
[2020-11-29] MEDS: Piperacillin/Tazobactam 3.375 GM in 0.9 % Sodium Chloride Mini Bag 100 ML IVPB SCH ×2 (08:10→16:31)
[2020-11-29] MEDS ORDERED: Perflutren Lipid Microsphere 1.3 ML in 0.9 % Sodium Chloride 8.7 ML IVP PRN (17:15)
[2020-11-29] MEDS: Vancomycin 1,250 MG/262.5 ML IV.SOLN IVPB SCH (18:56)
[2020-11-30] MEDS: Piperacillin/Tazobactam 3.375 GM in 0.9 % Sodium Chloride Mini Bag 100 ML IVPB SCH ×3 (00:32→16:42)
[2020-11-30 02:03] LABS: Hemoglobin 9.9 g/dL (12.9-16.9); Immature Granulocytes % 0.2 % (0-4); Mean Corpuscular Volume 99.7 fL (83.0-100.0)
[2020-11-30 02:04] LABS: Basophils % 0.9 %; Eosinophils % 0.7 %; Hematocrit 31.7 % (37.5-50.1); Immature Platelets 8.5 % (1.1-6.1); Lymphocytes % 22.3 %; Mean Corpuscular HGB Conc 31.2 g/dL (31.6-35.5); Mean Corpuscular Hemoglobin 31.1 pg (28.0-33.3); Mean Platelet Volume 12.7 fL (9.4-12.4); Monocytes # 0.6 K/mcL (0.0-1.3); Monocytes % 12.6 %; Neutrophils # 2.9 K/mcL (1.6-8.9); Nucleated Red Blood Cells 0.4 /100 WBC (0); Red Blood Count 3.18 M/mcL (4.19-5.50); Red Cell Distribution Width 17.5 % (11.5-14.5); Segmented Neutrophils % 63.3 %; White Blood Count 4.5 K/mcL (4.3-11.1)
[2020-11-30 02:17] LABS: Platelet Count 86 K/mcL (140-400)
[2020-11-30 02:23] LABS: Calcium 8.6 mg/dL (8.6-10.3)
[2020-11-30 02:33] LABS: Thyroid Stimulating Hormone 3.171 mcIU/mL (0.340-5.600)
[2020-11-30] MEDS ORDERED: Vancomycin 1,000 MG, Sodium Chloride IRRigation 1,000 ML IR ONE (15:35)
[2020-11-30] MEDS: Vancomycin 1,250 MG/262.5 ML IV.SOLN IVPB SCH (18:45)
[2020-11-30] MEDS: *HR* Heparin 5,000 UNIT/ML VIAL SQ SCH (18:45)
[2020-12-01] MEDS: Piperacillin/Tazobactam 3.375 GM in 0.9 % Sodium Chloride Mini Bag 100 ML IVPB SCH ×4 (00:17→23:24)
[2020-12-01 05:51] LABS: Basophils % 0.5 %
[2020-12-01 05:53] LABS: Hematocrit 30.4 % (37.5-50.1); Hemoglobin 10.1 g/dL (12.9-16.9); Immature Platelets 7.6 % (1.1-6.1); Lymphocytes # 1.2 K/mcL (0.6-4.6); Lymphocytes % 27.4 %; Mean Corpuscular HGB Conc 33.2 g/dL (31.6-35.5); Mean Corpuscular Hemoglobin 32.3 pg (28.0-33.3); Mean Corpuscular Volume 97.1 fL (83.0-100.0); Mean Platelet Volume 12.7 fL (9.4-12.4); Monocytes # 0.6 K/mcL (0.0-1.3); Monocytes % 12.8 %; Neutrophils # 2.6 K/mcL (1.6-8.9); Red Blood Count 3.13 M/mcL (4.19-5.50); Red Cell Distribution Width 17.6 % (11.5-14.5); Segmented Neutrophils % 59.3 %; White Blood Count 4.3 K/mcL (4.3-11.1)
[2020-12-01 06:00] LABS: Platelet Count 95 K/mcL (140-400)
[2020-12-01 06:13] LABS: Calcium 8.8 mg/dL (8.6-10.3); Potassium 4.3 mEq/L (3.5-5.1)
[2020-12-01] MEDS: *HR* Heparin 5,000 UNIT/ML VIAL SQ SCH ×2 (07:07→17:29)
[2020-12-01] MEDS ORDERED: Piperacillin/Tazobactam 3.375 GM VIAL ONE (15:18)
[2020-12-01] MEDS: Vancomycin 1,250 MG/262.5 ML IV.SOLN IVPB SCH (17:29)
[2020-12-02 02:10] LABS: Basophils % 0.7 %; Hematocrit 31.2 % (37.5-50.1); Hemoglobin 9.9 g/dL (12.9-16.9); Immature Granulocytes % 0.2 % (0-4); Lymphocytes # 1.2 K/mcL (0.6-4.6); Lymphocytes % 27.2 %; Mean Corpuscular HGB Conc 31.7 g/dL (31.6-35.5); Mean Corpuscular Hemoglobin 31.5 pg (28.0-33.3); Mean Corpuscular Volume 99.4 fL (83.0-100.0); Mean Platelet Volume 12.9 fL (9.4-12.4); Monocytes # 0.6 K/mcL (0.0-1.3); Monocytes % 13.8 %; Neutrophils # 2.5 K/mcL (1.6-8.9); Red Blood Count 3.14 M/mcL (4.19-5.50); Red Cell Distribution Width 17.6 % (11.5-14.5); Segmented Neutrophils % 58.1 %; White Blood Count 4.3 K/mcL (4.3-11.1)
[2020-12-02 02:11] LABS: Platelet Count 99 K/mcL (140-400)
[2020-12-02 02:26] LABS: Calcium 8.8 mg/dL (8.6-10.3); Potassium 4.5 mEq/L (3.5-5.1)
[2020-12-02] MEDS: *HR* Heparin 5,000 UNIT/ML VIAL SQ SCH ×2 (05:25→17:11)
[2020-12-02] MEDS: Piperacillin/Tazobactam 3.375 GM in 0.9 % Sodium Chloride Mini Bag 100 ML IVPB SCH ×3 (08:48→23:19)
[2020-12-02] MEDS ORDERED: *HR* FentaNYL (PF) 100 MCG/2 ML VIAL IVP PRN ×2 (11:15→14:31)
[2020-12-02] MEDS ORDERED: *HR* Etomidate 40 MG/20 ML VIAL IVP ONE (11:54)
[2020-12-02] MEDS ORDERED: *HR* Midazolam HCl 2 MG/2 ML VIAL ONE (11:54)
[2020-12-02] MEDS ORDERED: *HR* FentaNYL (PF) 100 MCG/2 ML VIAL ONE (11:54)
[2020-12-02] MEDS ORDERED: *HR* Norepinephrine 4 MG/4 ML VIAL IVC ONE (11:56)
[2020-12-02] MEDS ORDERED: Ropivacaine/PF 0.5% 30 ML VIAL ONE (11:57)
[2020-12-02] MEDS ORDERED: D5% in Water 250 ML ONE (11:57)
[2020-12-02] MEDS ORDERED: ROPIVACAINE/PF/NS 0.25% 1 EACH SYRINGE INTRAART ONE (11:57)
[2020-12-02] MEDS ORDERED: Bupivacaine-MPF 0.25% 10 ML VIAL ONE (12:08)
[2020-12-02] MEDS ORDERED: Vancomycin 1,000 MG VIAL ONE (12:08)
[2020-12-02] MEDS ORDERED: Vancomycin 1,000 MG, Sodium Chloride IRRigation 1,000 ML IR ONE (12:45)
[2020-12-02] MEDS ORDERED: Naloxone 0.4 MG/ML INJ IVP PRN (14:31)
[2020-12-02] MEDS ORDERED: Melatonin 3 MG TABLET PO PRN (14:31)
[2020-12-02] MEDS ORDERED: Ondansetron 4 MG/2 ML VIAL IVP PRN (14:31)
[2020-12-02] MEDS ORDERED: Acetaminophen 325 MG TABLET PO PRN (14:31)
[2020-12-02] MEDS ORDERED: Vancomycin 1,250 MG/262.5 ML IV.SOLN IVPB SCH (18:00)
[2020-12-03 01:18] LABS: Immature Granulocytes % 0.3 % (0-4); Mean Platelet Volume 12.8 fL (9.4-12.4); Monocytes % 13.6 %
[2020-12-03 01:20] LABS: Basophils % 0.2 %; Hematocrit 31.3 % (37.5-50.1); Hemoglobin 10.1 g/dL (12.9-16.9); Immature Platelets 8.4 % (1.1-6.1); Lymphocytes # 0.8 K/mcL (0.6-4.6); Lymphocytes % 13.8 %; Mean Corpuscular HGB Conc 32.3 g/dL (31.6-35.5); Mean Corpuscular Volume 99.1 fL (83.0-100.0); Monocytes # 0.8 K/mcL (0.0-1.3); Red Blood Count 3.16 M/mcL (4.19-5.50); Red Cell Distribution Width 17.9 % (11.5-14.5); Segmented Neutrophils % 72.1 %; White Blood Count 5.9 K/mcL (4.3-11.1)
[2020-12-03 01:24] LABS: Neutrophils # 4.3 K/mcL (1.6-8.9); Platelet Count 98 K/mcL (140-400)
[2020-12-03 01:37] LABS: Calcium 8.8 mg/dL (8.6-10.3); Potassium 4.8 mEq/L (3.5-5.1)
[2020-12-03] MEDS: *HR* Heparin 5,000 UNIT/ML VIAL SQ SCH ×2 (06:09→17:41)
[2020-12-03] MEDS: Piperacillin/Tazobactam 3.375 GM in 0.9 % Sodium Chloride Mini Bag 100 ML IVPB SCH ×3 (07:57→23:46)
[2020-12-04] MEDS: *HR* Heparin 5,000 UNIT/ML VIAL SQ SCH ×2 (05:38→16:52)
[2020-12-04] MEDS: Piperacillin/Tazobactam 3.375 GM in 0.9 % Sodium Chloride Mini Bag 100 ML IVPB SCH ×2 (07:39→15:38)
[2020-12-05] MEDS: Piperacillin/Tazobactam 3.375 GM in 0.9 % Sodium Chloride Mini Bag 100 ML IVPB SCH ×2 (00:27→08:09)
[2020-12-05 00:38] LABS: Basophils % 0.4 %; Hematocrit 30.2 % (37.5-50.1); Hemoglobin 9.6 g/dL (12.9-16.9); Immature Granulocytes % 0.2 % (0-4); Mean Corpuscular HGB Conc 31.8 g/dL (31.6-35.5)
[2020-12-05 00:40] LABS: Lymphocytes # 1.5 K/mcL (0.6-4.6); Lymphocytes % 25.6 %; Mean Corpuscular Hemoglobin 31.5 pg (28.0-33.3); Mean Platelet Volume 12.1 fL (9.4-12.4); Monocytes # 0.8 K/mcL (0.0-1.3); Monocytes % 13.2 %; Red Blood Count 3.05 M/mcL (4.19-5.50); Red Cell Distribution Width 17.6 % (11.5-14.5); Segmented Neutrophils % 60.6 %; White Blood Count 5.7 K/mcL (4.3-11.1)
[2020-12-05 00:41] LABS: Neutrophils # 3.5 K/mcL (1.6-8.9); Platelet Count 89 K/mcL (140-400)
[2020-12-05 00:58] LABS: Potassium 4.4 mEq/L (3.5-5.1)
[2020-12-05] MEDS: *HR* Heparin 5,000 UNIT/ML VIAL SQ SCH (06:01)
[2020-12-05 10:20] VITALS: BP 129/65; PULSE 48; TEMP 97.8; O2SAT 98
== END 2020-12-05 14:30 | disposition home health service (06) | DRG 988 ==
LOC: CDU 15:19 → EMEROOARM 15:19 → SUATTDRO 22:08 → CDU 22:35 → 3ANU 11-30 18:39
PROVIDERS: ADMIT Internal Medicine; ATTEND Student in an Organized Health Care Education/Training Program

== ENCOUNTER 2021-01-12 12:23 | Inpatient (IN) ==
[2021-01-12] MEDS ORDERED: 0.9 % Sodium Chloride 500 ML IVC ONE (14:16)
[2021-01-12] MEDS ORDERED: Piperacillin/Tazobactam 3.375 GM in 0.9 % Sodium Chloride Mini Bag 100 ML IVPB ONE (14:38)
[2021-01-12 15:18] LABS: Basophils % 0.4 %; Hematocrit 33.9 % (37.5-50.1); Immature Granulocytes % 0.2 % (0-4); Lymphocytes % 21.3 %; Mean Corpuscular HGB Conc 32.4 g/dL (31.6-35.5); Mean Corpuscular Hemoglobin 32.8 pg (28.0-33.3); Mean Corpuscular Volume 101.2 fL (83.0-100.0); Mean Platelet Volume 12.1 fL (9.4-12.4); Monocytes # 0.5 K/mcL (0.0-1.3); Monocytes % 10.8 %; Neutrophils # 3.3 K/mcL (1.6-8.9); Platelet Count 128 K/mcL (140-400); Red Blood Count 3.35 M/mcL (4.19-5.50); Red Cell Distribution Width 17.3 % (11.5-14.5); Segmented Neutrophils % 67.3 %; White Blood Count 4.8 K/mcL (4.3-11.1)
[2021-01-12] MEDS ORDERED: Naloxone 0.4 MG/ML INJ IVP PRN (16:03)
[2021-01-12] MEDS ORDERED: Ondansetron 4 MG/2 ML VIAL IVP PRN (16:03)
[2021-01-12] MEDS ORDERED: Vancomycin 1,500 MG/265 ML IV.SOLN IVPB SCH (17:00)
[2021-01-12 18:56] LABS: INR 2.2; Prothrombin Time 25.4 Seconds (9.4-12.1)
[2021-01-12] MEDS ORDERED: *HR* Warfarin 2.5 MG TABLET PO ONE (19:04)
[2021-01-12] MEDS: Warfarin perPT PO SCH (19:19)
[2021-01-12] MEDS: Piperacillin/Tazobactam 3.375 GM in 0.9 % Sodium Chloride Mini Bag 100 ML IVPB SCH (23:36)
[2021-01-13 01:34] LABS: INR 2.3; Prothrombin Time 26.3 Seconds (9.4-12.1)
[2021-01-13 06:39] LABS: Potassium 4.4 mEq/L (3.5-5.1)
[2021-01-13] MEDS: Piperacillin/Tazobactam 3.375 GM in 0.9 % Sodium Chloride Mini Bag 100 ML IVPB SCH ×3 (07:57→23:25)
[2021-01-13] MEDS ORDERED: Cyanocobalamin (B-12) 1,000 MCG TABLET PO SCH (09:00)
[2021-01-13] MEDS ORDERED: Lidocaine -MPF 2% 2 ML VIAL ONE (11:39)
[2021-01-13] MEDS ORDERED: Vancomycin 1,000 MG VIAL ONE (13:25)
[2021-01-13] MEDS ORDERED: Bupivacaine-MPF 0.25% 10 ML VIAL ONE (13:25)
[2021-01-13] MEDS ORDERED: Vancomycin 1,000 MG, 0.9 % Sodium Chloride 1,000 ML IR ONE ×2 (13:30→18:09)
[2021-01-13] MEDS ORDERED: EPHEDrine 50 MG/ML VIAL ONE (14:06)
[2021-01-13] MEDS ORDERED: *HR* Etomidate 40 MG/20 ML VIAL IVP ONE (14:18)
[2021-01-13] MEDS ORDERED: *HR* FentaNYL (PF) 100 MCG/2 ML VIAL ONE (14:24)
[2021-01-13] MEDS ORDERED: Vancomycin 1,250 MG/262.5 ML IV.SOLN IVPB SCH (15:00)
[2021-01-13] MEDS ORDERED: *HR* Warfarin 5 MG TABLET PO ONE (18:00)
[2021-01-13] MEDS ORDERED: Naloxone 0.4 MG/ML INJ IVP PRN (18:09)
[2021-01-13] MEDS ORDERED: Ondansetron 4 MG/2 ML VIAL IVP PRN (18:09)
[2021-01-13] MEDS: Warfarin perPT PO SCH (18:17)
[2021-01-13] MEDS: Acetaminophen 325 MG TABLET PO PRN (21:12)
[2021-01-14 03:49] LABS: INR 2.6; Prothrombin Time 29.2 Seconds (9.4-12.1)
[2021-01-14] MEDS: Piperacillin/Tazobactam 3.375 GM in 0.9 % Sodium Chloride Mini Bag 100 ML IVPB SCH ×2 (09:25→15:47)
[2021-01-14] MEDS: Cyanocobalamin (B-12) 1,000 MCG TABLET PO SCH (09:28)
[2021-01-14] MEDS ORDERED: Furosemide 40 MG TABLET PO SCH (12:30)
[2021-01-14] MEDS: Acetaminophen 325 MG TABLET PO PRN (15:46)
[2021-01-14] MEDS: Warfarin perPT PO SCH (17:54)
[2021-01-14] MEDS ORDERED: *HR* Warfarin 5 MG TABLET PO ONE (18:00)
[2021-01-15] MEDS: Piperacillin/Tazobactam 3.375 GM in 0.9 % Sodium Chloride Mini Bag 100 ML IVPB SCH ×3 (00:14→15:25)
[2021-01-15 01:03] LABS: Mean Corpuscular Volume 100.7 fL (83.0-100.0); Red Cell Distribution Width 17.2 % (11.5-14.5)
[2021-01-15 01:05] LABS: Hematocrit 27.2 % (37.5-50.1); Hemoglobin 8.8 g/dL (12.9-16.9); Immature Platelets 6.5 % (1.1-6.1); Mean Corpuscular HGB Conc 32.4 g/dL (31.6-35.5); Mean Corpuscular Hemoglobin 32.6 pg (28.0-33.3); Mean Platelet Volume 11.7 fL (9.4-12.4); Red Blood Count 2.7 M/mcL (4.19-5.50); White Blood Count 4.9 K/mcL (4.3-11.1)
[2021-01-15 01:14] LABS: INR 3.7; Prothrombin Time 41.4 Seconds (9.4-12.1)
[2021-01-15 01:21] LABS: Calcium 8.7 mg/dL (8.6-10.3); Potassium 4.1 mEq/L (3.5-5.1)
[2021-01-15] MEDS: Furosemide 20 MG TABLET PO SCH (08:28)
[2021-01-15] MEDS: Cyanocobalamin (B-12) 1,000 MCG TABLET PO SCH (08:28)
[2021-01-15] MEDS: Warfarin perPT PO SCH (17:41)
[2021-01-16] MEDS: Piperacillin/Tazobactam 3.375 GM in 0.9 % Sodium Chloride Mini Bag 100 ML IVPB SCH ×4 (00:33→23:58)
[2021-01-16 03:23] LABS: Hematocrit 27.3 % (37.5-50.1); Hemoglobin 8.9 g/dL (12.9-16.9)
[2021-01-16 03:33] LABS: INR 4.5; Prothrombin Time 49.8 Seconds (9.4-12.1)
[2021-01-16 03:43] LABS: Calcium 8.8 mg/dL (8.6-10.3); Potassium 4.5 mEq/L (3.5-5.1)
[2021-01-16] MEDS: Cyanocobalamin (B-12) 1,000 MCG TABLET PO SCH (09:04)
[2021-01-16] MEDS: Furosemide 20 MG TABLET PO SCH (09:04)
[2021-01-16] MEDS: Warfarin perPT PO SCH (17:00)
[2021-01-17 03:48] LABS: INR 3.5; Prothrombin Time 39.4 Seconds (9.4-12.1)
[2021-01-17] MEDS: Furosemide 20 MG TABLET PO SCH (07:30)
[2021-01-17] MEDS: Piperacillin/Tazobactam 3.375 GM in 0.9 % Sodium Chloride Mini Bag 100 ML IVPB SCH ×3 (07:30→23:50)
[2021-01-17] MEDS: Cyanocobalamin (B-12) 1,000 MCG TABLET PO SCH (07:30)
[2021-01-17] MEDS: amLODIPine 5 MG TABLET PO SCH (16:34)
[2021-01-17] MEDS: Warfarin perPT PO SCH (17:58)
[2021-01-18 04:24] LABS: INR 2.7
[2021-01-18] MEDS: amLODIPine 5 MG TABLET PO SCH (07:24)
[2021-01-18] MEDS: Furosemide 20 MG TABLET PO SCH (07:24)
[2021-01-18] MEDS: Piperacillin/Tazobactam 3.375 GM in 0.9 % Sodium Chloride Mini Bag 100 ML IVPB SCH (07:24)
[2021-01-18] MEDS: Cyanocobalamin (B-12) 1,000 MCG TABLET PO SCH (07:25)
[2021-01-18 07:34] VITALS: O2SAT 98
[2021-01-18 10:56] VITALS: BP 154/73; PULSE 51; TEMP 97.6
[2021-01-18] MEDS ORDERED: *HR* Warfarin 2.5 MG TABLET PO ONE (18:00)
== END 2021-01-18 14:18 | disposition home health service (06) | DRG 629 ==
LOC: 3BNU 12:23 → EMEROOARM 12:23 → 3BNU 17:42 → SUATTDRO 01-13 13:56
PROVIDERS: ADMIT General Practice; ATTEND Registered Nurse

== ENCOUNTER 2021-02-09 14:11 | Observation (INO) ==
[2021-02-09] MEDS ORDERED: *HR* Heparin 5,000 UNIT/ML VIAL IVP ONE (19:41)
[2021-02-09] MEDS ORDERED: *HR* Heparin 5,000 UNIT/ML VIAL IVP PRN ×2 (19:41)
[2021-02-09 20:16] LABS: Immature Granulocytes % 0.4 % (0-4); Red Cell Distribution Width 16.4 % (11.5-14.5)
[2021-02-09 20:18] LABS: Basophils % 0.4 %; Hematocrit 29.6 % (37.5-50.1); Hemoglobin 9.7 g/dL (12.9-16.9); Immature Platelets 11.5 % (1.1-6.1); Lymphocytes # 1.1 K/mcL (0.6-4.6); Lymphocytes % 19.6 %; Mean Corpuscular HGB Conc 32.8 g/dL (31.6-35.5); Mean Corpuscular Hemoglobin 33.3 pg (28.0-33.3); Mean Corpuscular Volume 101.7 fL (83.0-100.0); Mean Platelet Volume 12.3 fL (9.4-12.4); Monocytes # 0.7 K/mcL (0.0-1.3); Monocytes % 12.1 %; Neutrophils # 3.8 K/mcL (1.6-8.9); Platelet Count 101 K/mcL (140-400); Red Blood Count 2.91 M/mcL (4.19-5.50); Segmented Neutrophils % 67.5 %; White Blood Count 5.6 K/mcL (4.3-11.1)
[2021-02-09 21:20] LABS: Heparin anti-factor XA UFH < 0.04 IU/mL (0.30-0.70); INR 2.4; Prothrombin Time 26.7 Seconds (9.4-12.1)
[2021-02-09 21:23] LABS: Activated Partial Thrombo Time 43.9 Seconds (26.0-36.0)
[2021-02-09 21:26] LABS: Calcium 9.6 mg/dL (8.6-10.3); Potassium 4.2 mEq/L (3.5-5.1); Troponin I 0.04 ng/mL (< 0.04)
[2021-02-09] MEDS: Heparin 25,000UNIT/250ML 1/2NS 25,000 UNIT/250 ML IV.SOLN IVC SCH (21:46)
[2021-02-09] MEDS ORDERED: Acetaminophen 325 MG TABLET PO PRN (23:52)
[2021-02-09] MEDS ORDERED: Ondansetron 4 MG/2 ML VIAL IVP PRN (23:52)
[2021-02-09] MEDS ORDERED: Naloxone 0.4 MG/ML INJ IVP PRN (23:52)
[2021-02-10] MEDS ORDERED: Piperacillin/Tazobactam 3.375 GM in 0.9 % Sodium Chloride Mini Bag 100 ML IVPB SCH
[2021-02-10 02:40] LABS: Basophils % 0.4 %; Immature Granulocytes % 0.2 % (0-4); Lymphocytes % 24.1 %; Mean Corpuscular Volume 101.8 fL (83.0-100.0); Mean Platelet Volume 12.1 fL (9.4-12.4); Red Cell Distribution Width 16.2 % (11.5-14.5)
[2021-02-10 02:42] LABS: Hematocrit 27.9 % (37.5-50.1); Hemoglobin 9.1 g/dL (12.9-16.9); Immature Platelets 10.2 % (1.1-6.1); Lymphocytes # 1.3 K/mcL (0.6-4.6); Mean Corpuscular HGB Conc 32.6 g/dL (31.6-35.5); Mean Corpuscular Hemoglobin 33.2 pg (28.0-33.3); Monocytes # 0.7 K/mcL (0.0-1.3); Monocytes % 12.5 %; Neutrophils # 3.3 K/mcL (1.6-8.9); Red Blood Count 2.74 M/mcL (4.19-5.50); Segmented Neutrophils % 62.8 %; White Blood Count 5.2 K/mcL (4.3-11.1)
[2021-02-10 02:48] LABS: Albumin 3.7 g/dL (3.5-5.7); Bilirubin,Total 0.8 mg/dL (0.3-1.0); Calcium 9.3 mg/dL (8.6-10.3); Globulin 3.7 g/dL (2.4-3.5); Total Protein 7.4 g/dL (6.4-8.9)
[2021-02-10 02:51] LABS: Platelet Count 96 K/mcL (140-400)
[2021-02-10 03:47] LABS: INR 2.5; Prothrombin Time 28.5 Seconds (9.4-12.1)
[2021-02-10] MEDS: Piperacillin/Tazobactam 3.375 GM in 0.9 % Sodium Chloride Mini Bag 100 ML IVPB SCH ×3 (09:41→23:51)
[2021-02-10 16:16] LABS: INR 2.8; Prothrombin Time 31.1 Seconds (9.4-12.1)
[2021-02-10] MEDS: Heparin 25,000UNIT/250ML 1/2NS 25,000 UNIT/250 ML IV.SOLN IVC SCH (16:46)
[2021-02-11 04:05] LABS: Basophils % 0.4 %; Monocytes % 11.6 %; Red Cell Distribution Width 16.5 % (11.5-14.5)
[2021-02-11 04:07] LABS: Hematocrit 27.8 % (37.5-50.1); Hemoglobin 9.1 g/dL (12.9-16.9); Immature Granulocytes % 0.6 % (0-4); Lymphocytes # 1.2 K/mcL (0.6-4.6); Lymphocytes % 22.6 %; Mean Corpuscular HGB Conc 32.7 g/dL (31.6-35.5); Mean Corpuscular Hemoglobin 33.2 pg (28.0-33.3); Mean Corpuscular Volume 101.5 fL (83.0-100.0); Mean Platelet Volume 12.2 fL (9.4-12.4); Monocytes # 0.6 K/mcL (0.0-1.3); Neutrophils # 3.5 K/mcL (1.6-8.9); Red Blood Count 2.74 M/mcL (4.19-5.50); Segmented Neutrophils % 64.8 %; White Blood Count 5.4 K/mcL (4.3-11.1)
[2021-02-11 04:09] LABS: Platelet Count 98 K/mcL (140-400)
[2021-02-11 04:15] LABS: INR 2.7; Prothrombin Time 29.8 Seconds (9.4-12.1)
[2021-02-11 04:31] LABS: Calcium 9.1 mg/dL (8.6-10.3); Potassium 4.1 mEq/L (3.5-5.1)
[2021-02-11] MEDS: Piperacillin/Tazobactam 3.375 GM in 0.9 % Sodium Chloride Mini Bag 100 ML IVPB SCH (08:11)
[2021-02-11] MEDS ORDERED: Furosemide 40 MG TABLET PO SCH (09:00)
[2021-02-11] MEDS ORDERED: amLODIPine 5 MG TABLET PO SCH (09:00)
[2021-02-11] MEDS ORDERED: Cyanocobalamin (B-12) 1,000 MCG TABLET PO SCH (09:00)
[2021-02-11 11:23] VITALS: BP 151/71; PULSE 52; TEMP 97.9; O2SAT 93
[2021-02-11] MEDS ORDERED: Apixaban 5 MG TABLET PO SCH (11:30)
== END 2021-02-11 15:34 | disposition home health service (06) ==
LOC: EMEROOARM 14:11 → 3ANU 14:11 → SUATTDRO 22:24 → 3ANU 23:27
PROVIDERS: ADMIT Family Medicine; ATTEND Internal Medicine

== ENCOUNTER 2021-04-27 12:27 | Inpatient (IN) ==
[2021-04-27] MEDS ORDERED: 0.9 % Sodium Chloride 1,000 ML IVC ONE (12:49)
[2021-04-27] MEDS ORDERED: Ampicillin/Sulbactam 3,000 MG in 0.9 % Sodium Chloride 100 ML IVPB ONE (13:00)
[2021-04-27 13:26] LABS: Basophils % 0.4 %; Hematocrit 28.7 % (37.5-50.1); Hemoglobin 9.5 g/dL (12.9-16.9); Immature Granulocytes % 0.7 % (0-4); Lymphocytes # 0.8 K/mcL (0.6-4.6); Lymphocytes % 11.9 %; Mean Corpuscular HGB Conc 33.1 g/dL (31.6-35.5); Mean Corpuscular Hemoglobin 34.8 pg (28.0-33.3); Mean Corpuscular Volume 105.1 fL (83.0-100.0); Mean Platelet Volume 10.9 fL (9.4-12.4); Monocytes # 0.8 K/mcL (0.0-1.3); Monocytes % 11.2 %; Neutrophils # 5.3 K/mcL (1.6-8.9); Platelet Count 201 K/mcL (140-400); Red Blood Count 2.73 M/mcL (4.19-5.50); Red Cell Distribution Width 15.1 % (11.5-14.5); Segmented Neutrophils % 75.8 %
[2021-04-27] MEDS ORDERED: Acetaminophen 325 MG TABLET PO PRN (13:49)
[2021-04-27] MEDS ORDERED: Ondansetron 4 MG/2 ML VIAL IVP PRN (13:49)
[2021-04-27] MEDS ORDERED: Naloxone 0.4 MG/ML INJ IVP PRN (13:49)
[2021-04-27] MEDS ORDERED: *HR* OxyCODONE Immed Rel 5 MG TABLET PO PRN (13:49)
[2021-04-27] MEDS ORDERED: *HR* HYDROcodone/Acet 5/325 mg TABLET PO PRN (13:49)
[2021-04-27 13:51] LABS: Albumin 3.4 g/dL (3.5-5.7); Bilirubin,Direct 0.1 mg/dL (0.0-0.2); Bilirubin,Indirect 0.4 mg/dL (0.0-1.0); Bilirubin,Total 0.5 mg/dL (0.3-1.0); Globulin 3.3 g/dL (2.4-3.5); Potassium 4.6 mEq/L (3.5-5.1); Total Protein 6.7 g/dL (6.4-8.9)
[2021-04-27] MEDS ORDERED: *HR* HYDROmorphone (PF) 1 MG/ML SYRINGE IVP PRN (13:53)
[2021-04-27] MEDS ORDERED: *HR* Heparin 5,000 UNIT/ML VIAL IVP PRN ×2 (17:03)
[2021-04-27] MEDS ORDERED: *HR* Heparin 5,000 UNIT/ML VIAL IVP ONE (17:03)
[2021-04-27] MEDS ORDERED: Heparin 25,000 UNIT/250 ML 25,000 UNIT/250 ML IV.SOLN IVC SCH (17:15)
[2021-04-27 17:59] LABS: Hematocrit 26.6 % (37.5-50.1); Hemoglobin 8.5 g/dL (12.9-16.9); Mean Corpuscular Hemoglobin 33.7 pg (28.0-33.3); Mean Corpuscular Volume 105.6 fL (83.0-100.0); Platelet Count 183 K/mcL (140-400); Red Blood Count 2.52 M/mcL (4.19-5.50); Red Cell Distribution Width 14.9 % (11.5-14.5); White Blood Count 6.9 K/mcL (4.3-11.1)
[2021-04-27] MEDS ORDERED: Piperacillin/Tazobactam 3.375 GM in 0.9 % Sodium Chloride Mini Bag 100 ML IVPB SCH (18:00)
[2021-04-27 18:08] LABS: Heparin anti-factor XA UFH 0.37 IU/mL (0.30-0.70); INR 1.3; Prothrombin Time 14.4 Seconds (9.4-12.1)
[2021-04-27 18:11] LABS: Activated Partial Thrombo Time 35.1 Seconds (26.0-36.0)
[2021-04-27] MEDS: Heparin 25,000 UNIT/250 ML 25,000 UNIT/250 ML IV.SOLN IVC SCH (19:55)
[2021-04-28 02:43] LABS: Basophils % 0.6 %; Hematocrit 23.3 % (37.5-50.1); Hemoglobin 7.7 g/dL (12.9-16.9); Immature Granulocytes % 0.6 % (0-4); Lymphocytes # 0.9 K/mcL (0.6-4.6); Lymphocytes % 17.8 %; Mean Corpuscular Hemoglobin 34.5 pg (28.0-33.3); Mean Corpuscular Volume 104.5 fL (83.0-100.0); Monocytes # 0.7 K/mcL (0.0-1.3); Monocytes % 13.9 %; Neutrophils # 3.5 K/mcL (1.6-8.9); Platelet Count 160 K/mcL (140-400); Red Blood Count 2.23 M/mcL (4.19-5.50); Red Cell Distribution Width 15.1 % (11.5-14.5); Segmented Neutrophils % 67.1 %; White Blood Count 5.2 K/mcL (4.3-11.1)
[2021-04-28 02:51] LABS: Heparin anti-factor XA UFH 0.68 IU/mL (0.30-0.70)
[2021-04-28 02:52] LABS: INR 1.3; Prothrombin Time 14.1 Seconds (9.4-12.1)
[2021-04-28 03:07] LABS: Calcium 8.2 mg/dL (8.6-10.3); Magnesium 2.1 mg/dL (1.6-2.6); Potassium 4.5 mEq/L (3.5-5.1)
[2021-04-28 03:08] LABS: Iron 50 mcg/dL (65-175)
[2021-04-28 03:25] LABS: Ferritin 203 ng/mL (20-250)
[2021-04-28 03:50] LABS: Estimated Average Glucose 105 mg/dl; Hemoglobin A1C 5.3 %
[2021-04-28] MEDS ORDERED: Cyanocobalamin (B-12) 1,000 MCG TABLET PO SCH (09:00)
[2021-04-28] MEDS ORDERED: amLODIPine 5 MG TABLET PO SCH (09:00)
[2021-04-28] MEDS ORDERED: CeFAZolin Syr 2,000MG/20 ML 2,000 MG/20 ML SYRINGE IVPB ONE (13:59)
[2021-04-28] MEDS ORDERED: 0.9 % Sodium Chloride 1,000 ML IVC SCH (14:00)
[2021-04-28] MEDS ORDERED: Clindamycin 900 MG/50 ML 900 MG/50 ML IV.SOLN IVPB ONE (14:15)
[2021-04-28] MEDS ORDERED: Lidocaine 1% 20 ML MDV ONE (14:29)
[2021-04-28] MEDS ORDERED: Lidocaine -MPF 2% 5 ML VIAL ONE (15:05)
[2021-04-28] MEDS ORDERED: Ondansetron 4 MG/2 ML VIAL ONE (15:05)
[2021-04-28] MEDS ORDERED: *HR* FentaNYL (PF) 100 MCG/2 ML VIAL ONE (15:05)
[2021-04-28] MEDS ORDERED: *HR* Propofol 200 MG/20 ML VIAL IVP ONE (15:05)
[2021-04-28] MEDS ORDERED: Ondansetron 4 MG/2 ML VIAL IVP PRN (16:28)
[2021-04-28] MEDS ORDERED: Acetaminophen 325 MG TABLET PO PRN (16:28)
[2021-04-28] MEDS ORDERED: Naloxone 0.4 MG/ML INJ IVP PRN (16:28)
[2021-04-28] MEDS ORDERED: *HR* OxyCODONE Immed Rel 5 MG TABLET PO PRN (16:28)
[2021-04-28] MEDS ORDERED: *HR* Heparin 5,000 UNIT/ML VIAL IVP PRN ×2 (16:28)
[2021-04-28] MEDS ORDERED: *HR* HYDROcodone/Acet 5/325 mg TABLET PO PRN (16:28)
[2021-04-28] MEDS ORDERED: *HR* HYDROmorphone (PF) 1 MG/ML SYRINGE IVP PRN (16:28)
[2021-04-28] MEDS: Heparin 25,000 UNIT/250 ML 25,000 UNIT/250 ML IV.SOLN IVC SCH ×2 (17:33→19:32)
[2021-04-28] MEDS: Piperacillin/Tazobactam 3.375 GM in 0.9 % Sodium Chloride Mini Bag 100 ML IVPB SCH (17:50)
[2021-04-28] MEDS: hydrALAZINE 25 MG TABLET PO SCH (20:30)
[2021-04-29 00:47] LABS: Basophils % 0.5 %; Hematocrit 23.5 % (37.5-50.1); Hemoglobin 7.8 g/dL (12.9-16.9); Immature Granulocytes % 0.5 % (0-4); Lymphocytes # 0.9 K/mcL (0.6-4.6); Lymphocytes % 15.1 %; Mean Corpuscular HGB Conc 33.2 g/dL (31.6-35.5); Mean Corpuscular Volume 105.4 fL (83.0-100.0); Mean Platelet Volume 11.3 fL (9.4-12.4); Monocytes # 0.9 K/mcL (0.0-1.3); Monocytes % 15.6 %; Platelet Count 155 K/mcL (140-400); Red Blood Count 2.23 M/mcL (4.19-5.50); Red Cell Distribution Width 15.2 % (11.5-14.5); Segmented Neutrophils % 68.3 %; White Blood Count 5.9 K/mcL (4.3-11.1)
[2021-04-29 01:00] LABS: Calcium 8.4 mg/dL (8.6-10.3); Magnesium 2.1 mg/dL (1.6-2.6); Potassium 4.6 mEq/L (3.5-5.1)
[2021-04-29] MEDS: Piperacillin/Tazobactam 3.375 GM in 0.9 % Sodium Chloride Mini Bag 100 ML IVPB SCH ×3 (01:56→17:36)
[2021-04-29] MEDS: Heparin 25,000 UNIT/250 ML 25,000 UNIT/250 ML IV.SOLN IVC SCH ×2 (03:57→23:20)
[2021-04-29] MEDS ORDERED: amLODIPine 5 MG TABLET PO SCH (09:00)
[2021-04-29 10:10] LABS: Heparin anti-factor XA UFH 0.4 IU/mL (0.30-0.70)
[2021-04-29] MEDS: Cyanocobalamin (B-12) 1,000 MCG TABLET PO SCH (10:45)
[2021-04-29] MEDS: hydrALAZINE 25 MG TABLET PO SCH ×3 (10:45→20:15)
[2021-04-29] MEDS: Furosemide 20 MG TABLET PO SCH ×2 (10:45→16:17)
[2021-04-29 11:07] LABS: Activated Partial Thrombo Time 52.3 Seconds (26.0-36.0)
[2021-04-30] MEDS: Piperacillin/Tazobactam 3.375 GM in 0.9 % Sodium Chloride Mini Bag 100 ML IVPB SCH ×3 (01:53→17:43)
[2021-04-30 04:46] LABS: Basophils % 0.3 %; Hematocrit 23.7 % (37.5-50.1); Hemoglobin 7.7 g/dL (12.9-16.9); Immature Granulocytes % 0.3 % (0-4); Lymphocytes % 15.4 %; Mean Corpuscular HGB Conc 32.5 g/dL (31.6-35.5); Mean Corpuscular Hemoglobin 34.1 pg (28.0-33.3); Mean Corpuscular Volume 104.9 fL (83.0-100.0); Mean Platelet Volume 11.6 fL (9.4-12.4); Monocytes # 0.8 K/mcL (0.0-1.3); Monocytes % 12.6 %; Neutrophils # 4.6 K/mcL (1.6-8.9); Platelet Count 156 K/mcL (140-400); Red Blood Count 2.26 M/mcL (4.19-5.50); Red Cell Distribution Width 15.1 % (11.5-14.5); Segmented Neutrophils % 71.4 %; White Blood Count 6.4 K/mcL (4.3-11.1)
[2021-04-30 05:10] LABS: Calcium 8.3 mg/dL (8.6-10.3); Potassium 4.2 mEq/L (3.5-5.1)
[2021-04-30] MEDS ORDERED: Iron Sucrose Complex 400 MG in 0.9 % Sodium Chloride 250 ML IVPB ONE (07:19)
[2021-04-30] MEDS: hydrALAZINE 25 MG TABLET PO SCH ×3 (08:56→20:39)
[2021-04-30] MEDS: Furosemide 20 MG TABLET PO SCH ×2 (08:56→16:11)
[2021-04-30] MEDS: Cyanocobalamin (B-12) 1,000 MCG TABLET PO SCH (08:56)
[2021-04-30 10:11] LABS: % Iron Saturation 22 % (20-55); Transferrin 162 mg/dL (200-400)
[2021-04-30] MEDS: Apixaban 2.5 MG TABLET PO SCH ×2 (11:34→20:39)
[2021-05-01] MEDS: Piperacillin/Tazobactam 3.375 GM in 0.9 % Sodium Chloride Mini Bag 100 ML IVPB SCH (01:30)
[2021-05-01 02:00] LABS: Basophils % 0.2 %; Hematocrit 23.5 % (37.5-50.1); Hemoglobin 7.4 g/dL (12.9-16.9); Immature Granulocytes % 0.4 % (0-4); Lymphocytes # 0.7 K/mcL (0.6-4.6); Lymphocytes % 14.1 %; Mean Corpuscular HGB Conc 31.5 g/dL (31.6-35.5); Mean Corpuscular Hemoglobin 33.5 pg (28.0-33.3); Mean Corpuscular Volume 106.3 fL (83.0-100.0); Mean Platelet Volume 11.7 fL (9.4-12.4); Monocytes # 0.6 K/mcL (0.0-1.3); Monocytes % 11.6 %; Neutrophils # 3.6 K/mcL (1.6-8.9); Platelet Count 144 K/mcL (140-400); Red Blood Count 2.21 M/mcL (4.19-5.50); Red Cell Distribution Width 15.3 % (11.5-14.5); Segmented Neutrophils % 73.7 %; White Blood Count 4.9 K/mcL (4.3-11.1)
[2021-05-01 02:10] LABS: Calcium 8.1 mg/dL (8.6-10.3); Potassium 4.1 mEq/L (3.5-5.1)
[2021-05-01] MEDS: hydrALAZINE 25 MG TABLET PO SCH ×3 (08:12→20:14)
[2021-05-01] MEDS: Apixaban 2.5 MG TABLET PO SCH ×2 (08:12→20:14)
[2021-05-01] MEDS: Furosemide 20 MG TABLET PO SCH ×2 (08:14→16:53)
[2021-05-01] MEDS: Cyanocobalamin (B-12) 1,000 MCG TABLET PO SCH (08:15)
[2021-05-01] MEDS: Cefepime HCl 1,000 MG in 0.9 % Sodium Chloride Mini Bag 100 ML IVPB SCH (16:54)
[2021-05-02 02:48] LABS: Basophils % 0.3 %; Hematocrit 24.7 % (37.5-50.1); Hemoglobin 7.8 g/dL (12.9-16.9); Immature Granulocytes % 0.5 % (0-4); Lymphocytes # 0.9 K/mcL (0.6-4.6); Lymphocytes % 14.9 %; Mean Corpuscular HGB Conc 31.6 g/dL (31.6-35.5); Mean Corpuscular Hemoglobin 33.3 pg (28.0-33.3); Mean Corpuscular Volume 105.6 fL (83.0-100.0); Mean Platelet Volume 11.4 fL (9.4-12.4); Monocytes # 0.7 K/mcL (0.0-1.3); Neutrophils # 4.3 K/mcL (1.6-8.9); Platelet Count 150 K/mcL (140-400); Red Blood Count 2.34 M/mcL (4.19-5.50); Red Cell Distribution Width 15.5 % (11.5-14.5); Segmented Neutrophils % 72.3 %; White Blood Count 5.9 K/mcL (4.3-11.1)
[2021-05-02 03:00] LABS: Calcium 8.3 mg/dL (8.6-10.3); Potassium 4.2 mEq/L (3.5-5.1)
[2021-05-02] MEDS: Cefepime HCl 1,000 MG in 0.9 % Sodium Chloride Mini Bag 100 ML IVPB SCH ×3 (05:34→17:37)
[2021-05-02 07:39] VITALS: O2SAT 96
[2021-05-02] MEDS ORDERED: Heparin 1,000 UNITS/500 mL 500 ML ONE (10:07)
[2021-05-02] MEDS ORDERED: Isovue-300 50ML VIAL IVP ONE (11:09)
[2021-05-02] MEDS: Furosemide 20 MG TABLET PO SCH ×2 (13:42→16:06)
[2021-05-02] MEDS: Apixaban 2.5 MG TABLET PO SCH (13:42)
[2021-05-02] MEDS: hydrALAZINE 25 MG TABLET PO SCH ×2 (13:42→16:06)
[2021-05-02] MEDS: Cyanocobalamin (B-12) 1,000 MCG TABLET PO SCH (13:43)
[2021-05-02 16:20] VITALS: BP 144/71; PULSE 54; TEMP 97.2
== END 2021-05-02 19:00 | disposition home health service (06) | DRG 623 ==
LOC: EMEROOARM 12:27 → 3ANU 12:27 → SUATTDRO 13:37 → 3ANU 15:12
PROVIDERS: ADMIT Pharmacist; ATTEND Family Medicine
PROC: IRDRAIN (2021-05-02 12:00)

== ENCOUNTER 2021-06-20 12:38 | Inpatient (IN) ==
[2021-06-20] MEDS ORDERED: 0.9 % Sodium Chloride 500 ML IVC ONE (14:01)
[2021-06-20 14:34] LABS: Basophils % 0.8 %; Eosinophils % 0.6 %; Hematocrit 25.2 % (37.5-50.1); Hemoglobin 7.8 g/dL (12.9-16.9); Immature Granulocytes % 0.2 % (0-4); Mean Corpuscular Hemoglobin 32.5 pg (28.0-33.3); Monocytes # 0.7 K/mcL (0.0-1.3); Monocytes % 13.4 %; Neutrophils # 3.3 K/mcL (1.6-8.9); Platelet Count 129 K/mcL (140-400); Red Cell Distribution Width 14.2 % (11.5-14.5)
[2021-06-20 14:52] LABS: Calcium 9.2 mg/dL (8.6-10.3); Troponin I 0.06 ng/mL (< 0.04)
[2021-06-20 14:54] LABS: INR 1.8; Prothrombin Time 19.7 Seconds (9.4-12.1)
[2021-06-20 14:56] LABS: Activated Partial Thrombo Time 37.7 Seconds (26.0-36.0)
[2021-06-20 15:01] LABS: Bilirubin,Urine Negative (Negative); Blood,Urine Small (Negative); Clarity,Urine Clear (Clear); Color,Urine Light-Yellow (Yellow); Glucose,Urine (UA) Normal (Normal); Ketones,Urine Negative (Negative); Leukocyte Esterase,Urine Negative (Negative); Mucus,Urine Few per lpf (None-Few); Nitrite,Urine Negative (Negative); Protein,Urine 70 mg/dL (Neg-Trace); Specific Gravity,Urine 1.012 (1.010-1.025); Urobilinogen,Urine Normal (Normal); WBC,Urine 0-3 per hpf (0-3)
[2021-06-20] MEDS ORDERED: Furosemide 40 MG/4 ML VIAL IVP ONE (16:30)
[2021-06-20] MEDS ORDERED: MOM Conc 10 ML UD.LIQ PO PRN (17:20)
[2021-06-20] MEDS ORDERED: Naloxone 0.4 MG/ML INJ IVP PRN (17:20)
[2021-06-20] MEDS ORDERED: Melatonin 3 MG TABLET PO PRN (17:20)
[2021-06-20] MEDS ORDERED: Ondansetron ODT 4 MG TAB.RAPDIS SL PRN (17:20)
[2021-06-20] MEDS ORDERED: Mag Hydrox/Al Hydrox/Simeth 30 ML UDC PO PRN (17:20)
[2021-06-20] MEDS ORDERED: Perflutren Lipid Microsphere 1.3 ML in 0.9 % Sodium Chloride 8.7 ML IVP PRN (17:46)
[2021-06-20] MEDS: Apixaban 2.5 MG TABLET PO SCH (21:20)
[2021-06-21 05:03] LABS: Hemoglobin 7.6 g/dL (12.9-16.9); Red Cell Distribution Width 14.3 % (11.5-14.5)
[2021-06-21 05:05] LABS: Hematocrit 25.1 % (37.5-50.1); Immature Platelets 12.7 % (1.1-6.1); Mean Corpuscular HGB Conc 30.3 g/dL (31.6-35.5); Mean Corpuscular Hemoglobin 32.5 pg (28.0-33.3); Mean Corpuscular Volume 107.3 fL (83.0-100.0); Mean Platelet Volume 12.7 fL (9.4-12.4); Red Blood Count 2.34 M/mcL (4.19-5.50); White Blood Count 4.6 K/mcL (4.3-11.1)
[2021-06-21 05:21] LABS: Calcium 8.9 mg/dL (8.6-10.3); Potassium 3.6 mEq/L (3.5-5.1)
[2021-06-21] MEDS: Apixaban 2.5 MG TABLET PO SCH ×2 (08:53→20:04)
[2021-06-21] MEDS: amLODIPine 5 MG TABLET PO SCH (08:53)
[2021-06-21] MEDS ORDERED: Furosemide 40 MG/4 ML VIAL IVP SCH (09:00)
[2021-06-21 13:47] LABS: LDH,Pleural Fluid 62 Units/L (No Ref Range); Total Protein,Pleural Fluid < 2.0 g/dL
[2021-06-21 15:07] LABS: Appearance of Pleural Fl Clear (Clear)
[2021-06-21 15:26] LABS: Basophils,Pleural Fluid 0 %; Eosinophils,Pleural Fluid 0 %; Monocytes,Pleural Fluid 0 %
[2021-06-21] MEDS: Furosemide 40 MG/4 ML VIAL IVP SCH (20:03)
[2021-06-21 23:24] LABS: Protein/Creatinine Ratio,Urine 3.12 mg/mg (0.00-0.20); Sodium, Urine 90.2 mEq/L
[2021-06-22 05:23] LABS: Basophils % 0.4 %; Hematocrit 22.8 % (37.5-50.1); Hemoglobin 7.2 g/dL (12.9-16.9); Immature Granulocytes % 0.4 % (0-4); Lymphocytes # 0.8 K/mcL (0.6-4.6); Lymphocytes % 15.2 %; Mean Corpuscular HGB Conc 31.6 g/dL (31.6-35.5); Mean Corpuscular Hemoglobin 32.7 pg (28.0-33.3); Mean Corpuscular Volume 103.6 fL (83.0-100.0); Mean Platelet Volume 12.4 fL (9.4-12.4); Monocytes # 0.8 K/mcL (0.0-1.3); Monocytes % 15.2 %; Neutrophils # 3.6 K/mcL (1.6-8.9); Platelet Count 102 K/mcL (140-400); Red Cell Distribution Width 14.3 % (11.5-14.5); Segmented Neutrophils % 68.8 %; White Blood Count 5.3 K/mcL (4.3-11.1)
[2021-06-22 05:41] LABS: Bilirubin,Total 0.5 mg/dL (0.3-1.0); Calcium 8.4 mg/dL (8.6-10.3); Globulin 3.1 g/dL (2.4-3.5); Potassium 3.5 mEq/L (3.5-5.1); Total Protein 6.1 g/dL (6.4-8.9)
[2021-06-22] MEDS: Furosemide 40 MG/4 ML VIAL IVP SCH ×2 (07:59→17:03)
[2021-06-22] MEDS: amLODIPine 5 MG TABLET PO SCH (08:00)
[2021-06-22] MEDS: Apixaban 2.5 MG TABLET PO SCH ×2 (08:00→21:02)
[2021-06-22] MEDS: Albumin 25% 25gram/100mL 25 GM/100 ML IV.SOLN IVPB SCH (16:50)
[2021-06-23] MEDS: Albumin 25% 25gram/100mL 25 GM/100 ML IV.SOLN IVPB SCH (05:10)
[2021-06-23 06:32] VITALS: O2SAT 93
[2021-06-23 06:35] LABS: Mean Platelet Volume 13.3 fL (9.4-12.4); Red Cell Distribution Width 14.3 % (11.5-14.5)
[2021-06-23 06:37] LABS: Basophils % 0.2 %; Hematocrit 23.5 % (37.5-50.1); Hemoglobin 7.3 g/dL (12.9-16.9); Immature Granulocytes % 0.5 % (0-4); Immature Platelets 13.6 % (1.1-6.1); Lymphocytes % 22.7 %; Mean Corpuscular HGB Conc 31.1 g/dL (31.6-35.5); Mean Corpuscular Hemoglobin 32.6 pg (28.0-33.3); Mean Corpuscular Volume 104.9 fL (83.0-100.0); Monocytes % 16.9 %; Platelet Count 102 K/mcL (140-400); Red Blood Count 2.24 M/mcL (4.19-5.50); Segmented Neutrophils % 59.7 %; White Blood Count 4.4 K/mcL (4.3-11.1)
[2021-06-23 06:43] LABS: Monocytes # 0.7 K/mcL (0.0-1.3); Neutrophils # 2.6 K/mcL (1.6-8.9)
[2021-06-23 06:58] LABS: Albumin 3.4 g/dL (3.5-5.7); Bilirubin,Total 0.5 mg/dL (0.3-1.0); Calcium 8.8 mg/dL (8.6-10.3); Globulin 3.3 g/dL (2.4-3.5); Potassium 3.2 mEq/L (3.5-5.1); Total Protein 6.7 g/dL (6.4-8.9)
[2021-06-23] MEDS: Furosemide 40 MG/4 ML VIAL IVP SCH (07:50)
[2021-06-23] MEDS: Apixaban 2.5 MG TABLET PO SCH (08:14)
[2021-06-23] MEDS: amLODIPine 5 MG TABLET PO SCH (08:14)
[2021-06-23 11:38] VITALS: BP 116/59; PULSE 48; TEMP 97.4
[2021-06-23] MEDS ORDERED: Torsemide 20 MG TABLET PO SCH (21:00)
== END 2021-06-23 16:07 | disposition home or self-care (01) | DRG 682 ==
LOC: 3BNU 12:38 → EMEROOARM 12:38 → 3BNU 17:25
PROVIDERS: ADMIT Internal Medicine; ATTEND Internal Medicine

== ENCOUNTER 2021-08-15 11:26 | Inpatient (IN) ==
[2021-08-15 12:59] LABS: Basophils % 0.5 %; Hematocrit 23.3 % (37.5-50.1); Hemoglobin 7.4 g/dL (12.9-16.9); Immature Granulocytes % 0.4 % (0-4); Lymphocytes # 0.8 K/mcL (0.6-4.6); Lymphocytes % 14.5 %; Mean Corpuscular HGB Conc 31.8 g/dL (31.6-35.5); Mean Corpuscular Hemoglobin 30.3 pg (28.0-33.3); Mean Corpuscular Volume 95.5 fL (83.0-100.0); Mean Platelet Volume 12.7 fL (9.4-12.4); Monocytes # 0.6 K/mcL (0.0-1.3); Monocytes % 11.1 %; Platelet Count 129 K/mcL (140-400); Red Blood Count 2.44 M/mcL (4.19-5.50); Red Cell Distribution Width 18.1 % (11.5-14.5); Segmented Neutrophils % 73.5 %; White Blood Count 5.5 K/mcL (4.3-11.1)
[2021-08-15 13:39] LABS: Calcium 9.4 mg/dL (8.6-10.3); Potassium 5.3 mEq/L (3.5-5.1); Troponin I 0.07 ng/mL (< 0.04)
[2021-08-15] MEDS ORDERED: Furosemide 40 MG/4 ML VIAL IVP ONE (14:39)
[2021-08-15] MEDS ORDERED: Albuterol 2.5 MG/3 ML NEBULIZER IH ONE (14:39)
[2021-08-15 15:08] LABS: Influenza A PCR Negative (Negative); Influenza B PCR Negative (Negative); Resp. Syncytial Virus PCR Negative (Negative)
[2021-08-15 15:23] LABS: SARS-CoV-2 by PCR (In House) Negative (Negative)
[2021-08-15] MEDS ORDERED: Ondansetron 4 MG/2 ML VIAL IVP PRN (15:36)
[2021-08-15] MEDS ORDERED: Naloxone 0.4 MG/ML INJ IVP PRN (15:36)
[2021-08-15] MEDS ORDERED: Ipratropium/Albuterol Neb 3 ML IH PRN (15:39)
[2021-08-15] MEDS: Bumetanide 1 MG/4 ML VIAL IVP SCH (16:56)
[2021-08-15] MEDS: Apixaban 2.5 MG TABLET PO SCH (20:49)
[2021-08-16 00:59] LABS: Basophils % 0.4 %; Hematocrit 21.8 % (37.5-50.1); Hemoglobin 6.9 g/dL (12.9-16.9); Immature Granulocytes % 0.4 % (0-4); Lymphocytes # 0.9 K/mcL (0.6-4.6); Lymphocytes % 15.5 %; Mean Corpuscular HGB Conc 31.7 g/dL (31.6-35.5); Mean Corpuscular Hemoglobin 30.3 pg (28.0-33.3); Mean Corpuscular Volume 95.6 fL (83.0-100.0); Mean Platelet Volume 13.1 fL (9.4-12.4); Monocytes % 11.7 %; Platelet Count 124 K/mcL (140-400); Red Blood Count 2.28 M/mcL (4.19-5.50); Red Cell Distribution Width 18.1 % (11.5-14.5); White Blood Count 5.5 K/mcL (4.3-11.1)
[2021-08-16 01:00] LABS: Monocytes # 0.6 K/mcL (0.0-1.3)
[2021-08-16 01:21] LABS: Calcium 9.1 mg/dL (8.6-10.3); Phosphorous 4.1 mg/dL (2.7-4.5); Potassium 5.1 mEq/L (3.5-5.1)
[2021-08-16 08:43] LABS: INR 1.6; Prothrombin Time 17.8 Seconds (9.4-12.1)
[2021-08-16] MEDS: Bumetanide 1 MG/4 ML VIAL IVP SCH ×2 (08:43→15:47)
[2021-08-16] MEDS ORDERED: Meropenem 1,000 MG in 0.9 % Sodium Chloride 20 ML IVP SCH ×2 (09:00→21:00)
[2021-08-16] MEDS: *HR* HYDROcodone/Acet 5/325 mg TABLET PO PRN ×2 (10:33→23:53)
[2021-08-16] MEDS ORDERED: Cyanocobalamin (B-12) 1,000 MCG/ML VIAL SQ ONE (15:57)
[2021-08-16] MEDS: Iron Sucrose Complex 250 MG in 0.9 % Sodium Chloride 250 ML IVPB SCH (16:38)
[2021-08-17] MEDS: Levothyroxine 25 MCG TABLET PO SCH (06:55)
[2021-08-17 06:57] LABS: Basophils % 0.6 %; Hematocrit 20.7 % (37.5-50.1); Hemoglobin 6.5 g/dL (12.9-16.9); Immature Granulocytes % 0.4 % (0-4); Lymphocytes # 0.8 K/mcL (0.6-4.6); Lymphocytes % 16.4 %; Mean Corpuscular HGB Conc 31.4 g/dL (31.6-35.5); Mean Corpuscular Hemoglobin 29.7 pg (28.0-33.3); Mean Corpuscular Volume 94.5 fL (83.0-100.0); Mean Platelet Volume 13.3 fL (9.4-12.4); Monocytes # 0.7 K/mcL (0.0-1.3); Monocytes % 14.1 %; Neutrophils # 3.5 K/mcL (1.6-8.9); Platelet Count 127 K/mcL (140-400); Red Blood Count 2.19 M/mcL (4.19-5.50); Red Cell Distribution Width 18.8 % (11.5-14.5); Segmented Neutrophils % 68.5 %; White Blood Count 5.1 K/mcL (4.3-11.1)
[2021-08-17 07:16] LABS: Albumin 3.1 g/dL (3.5-5.7); Bilirubin,Direct 0.1 mg/dL (0.0-0.2); Bilirubin,Indirect 0.4 mg/dL (0.0-1.0); Bilirubin,Total 0.5 mg/dL (0.3-1.0); Calcium 8.7 mg/dL (8.6-10.3); Magnesium 2.1 mg/dL (1.6-2.6); Potassium 5.4 mEq/L (3.5-5.1); Total Protein 6.1 g/dL (6.4-8.9)
[2021-08-17 07:27] LABS: Thyroid Stimulating Hormone 7.885 mcIU/mL (0.340-5.600)
[2021-08-17] MEDS: Bumetanide 1 MG/4 ML VIAL IVP SCH (07:52)
[2021-08-17] MEDS: Iron Sucrose Complex 250 MG in 0.9 % Sodium Chloride 250 ML IVPB SCH (07:52)
[2021-08-17] MEDS ORDERED: *HR* Dextrose 50 % in Water (Syg) 50 ML SYRINGE IVP ONE (07:53)
[2021-08-17] MEDS ORDERED: Insulin Human Regular 10 UNIT in 0.9 % Sodium Chloride 10 ML IV ONE (07:53)
[2021-08-17] MEDS ORDERED: 0.9 % Sodium Chloride 250 ML IVC SCH (08:00)
[2021-08-17 08:29] LABS: Hepatitis B Surface Antigen Nonreactive (Nonreactive)
[2021-08-17 08:57] LABS: Hepatitis B Core IgM Nonreactive (Nonreactive); Hepatitis C Virus Antibody Nonreactive (Nonreactive)
[2021-08-17] MEDS: Calcium Gluconate 1gm/50mL 1 GM/50 ML BAG IVPB SCH ×2 (09:15→09:43)
[2021-08-17] MEDS ORDERED: 0.9 % Sodium Chloride 250 ML ONE (14:53)
[2021-08-18 03:27] LABS: Hemoglobin 7.3 g/dL (12.9-16.9); Mean Platelet Volume 13.2 fL (9.4-12.4); Red Cell Distribution Width 18.8 % (11.5-14.5)
[2021-08-18 03:28] LABS: Basophils % 0.6 %; Hematocrit 22.6 % (37.5-50.1); Immature Granulocytes % 0.8 % (0-4); Immature Platelets 10.3 % (1.1-6.1); Lymphocytes # 0.9 K/mcL (0.6-4.6); Lymphocytes % 16.7 %; Mean Corpuscular HGB Conc 32.3 g/dL (31.6-35.5); Mean Corpuscular Hemoglobin 30.9 pg (28.0-33.3); Mean Corpuscular Volume 95.8 fL (83.0-100.0); Monocytes # 0.8 K/mcL (0.0-1.3); Monocytes % 14.8 %; Neutrophils # 3.5 K/mcL (1.6-8.9); Platelet Count 133 K/mcL (140-400); Red Blood Count 2.36 M/mcL (4.19-5.50); Segmented Neutrophils % 67.1 %; White Blood Count 5.2 K/mcL (4.3-11.1)
[2021-08-18 03:47] LABS: Calcium 8.8 mg/dL (8.6-10.3); Potassium 4.8 mEq/L (3.5-5.1)
[2021-08-18] MEDS: Levothyroxine 25 MCG TABLET PO SCH (06:02)
[2021-08-18] MEDS: Apixaban 2.5 MG TABLET PO SCH (08:01)
[2021-08-18 12:22] LABS: Albumin 3.2 g/dL (3.5-5.7); Bilirubin,Direct 0.3 mg/dL (0.0-0.2); Bilirubin,Indirect 0.2 mg/dL (0.0-1.0); Bilirubin,Total 0.5 mg/dL (0.3-1.0); Globulin 3.2 g/dL (2.4-3.5); INR 1.4; Prothrombin Time 15.8 Seconds (9.4-12.1); Total Protein 6.4 g/dL (6.4-8.9)
[2021-08-19 05:18] LABS: Basophils % 0.4 %; Hemoglobin 7.4 g/dL (12.9-16.9); Immature Granulocytes % 0.4 % (0-4); Lymphocytes # 0.9 K/mcL (0.6-4.6); Lymphocytes % 18.6 %; Mean Corpuscular HGB Conc 32.2 g/dL (31.6-35.5); Mean Corpuscular Hemoglobin 30.6 pg (28.0-33.3); Mean Platelet Volume 12.7 fL (9.4-12.4); Monocytes # 0.7 K/mcL (0.0-1.3); Monocytes % 12.9 %; Neutrophils # 3.4 K/mcL (1.6-8.9); Platelet Count 133 K/mcL (140-400); Red Blood Count 2.42 M/mcL (4.19-5.50); Red Cell Distribution Width 19.3 % (11.5-14.5); Segmented Neutrophils % 67.7 %; White Blood Count 5.1 K/mcL (4.3-11.1)
[2021-08-19 05:27] LABS: Calcium 8.6 mg/dL (8.6-10.3); Potassium 4.5 mEq/L (3.5-5.1)
[2021-08-19] MEDS: Levothyroxine 25 MCG TABLET PO SCH (05:46)
[2021-08-20] MEDS: Levothyroxine 25 MCG TABLET PO SCH (05:43)
[2021-08-20 05:56] LABS: Basophils % 0.3 %; Eosinophils # 0.2 K/mcL (0.0-0.6); Eosinophils % 2.9 %; Hematocrit 23.7 % (37.5-50.1); Hemoglobin 7.6 g/dL (12.9-16.9); Immature Granulocytes % 0.5 % (0-4); Lymphocytes % 16.4 %; Mean Corpuscular HGB Conc 32.1 g/dL (31.6-35.5); Mean Corpuscular Hemoglobin 30.9 pg (28.0-33.3); Mean Corpuscular Volume 96.3 fL (83.0-100.0); Mean Platelet Volume 12.3 fL (9.4-12.4); Monocytes # 0.8 K/mcL (0.0-1.3); Monocytes % 13.1 %; Neutrophils # 3.9 K/mcL (1.6-8.9); Platelet Count 141 K/mcL (140-400); Red Blood Count 2.46 M/mcL (4.19-5.50); Red Cell Distribution Width 19.8 % (11.5-14.5); Segmented Neutrophils % 66.8 %; White Blood Count 5.9 K/mcL (4.3-11.1)
[2021-08-20 06:13] LABS: Calcium 8.4 mg/dL (8.6-10.3); Potassium 4.8 mEq/L (3.5-5.1)
[2021-08-20] MEDS ORDERED: SODIUM CHLORIDE/NAHCO3/KCL/PEG 4,000 ML SOLN.RECON PO ONE (17:00)
[2021-08-21] MEDS: Levothyroxine 25 MCG TABLET PO SCH (05:38)
[2021-08-21 06:07] LABS: Basophils % 0.4 %; Hematocrit 24.7 % (37.5-50.1); Hemoglobin 7.8 g/dL (12.9-16.9); Immature Granulocytes % 0.4 % (0-4); Lymphocytes % 19.2 %; Mean Corpuscular HGB Conc 31.6 g/dL (31.6-35.5); Mean Corpuscular Hemoglobin 30.7 pg (28.0-33.3); Mean Corpuscular Volume 97.2 fL (83.0-100.0); Mean Platelet Volume 12.1 fL (9.4-12.4); Monocytes # 0.6 K/mcL (0.0-1.3); Monocytes % 11.3 %; Neutrophils # 3.7 K/mcL (1.6-8.9); Platelet Count 152 K/mcL (140-400); Red Blood Count 2.54 M/mcL (4.19-5.50); Segmented Neutrophils % 68.7 %; White Blood Count 5.4 K/mcL (4.3-11.1)
[2021-08-21 06:26] LABS: Calcium 8.4 mg/dL (8.6-10.3); Potassium 4.4 mEq/L (3.5-5.1)
[2021-08-22 01:46] LABS: Basophils % 0.4 %; Hematocrit 25.5 % (37.5-50.1); Hemoglobin 8.2 g/dL (12.9-16.9); Immature Granulocytes % 0.2 % (0-4); Lymphocytes # 0.9 K/mcL (0.6-4.6); Lymphocytes % 19.7 %; Mean Corpuscular HGB Conc 32.2 g/dL (31.6-35.5); Mean Corpuscular Hemoglobin 30.9 pg (28.0-33.3); Mean Corpuscular Volume 96.2 fL (83.0-100.0); Mean Platelet Volume 12.6 fL (9.4-12.4); Monocytes # 0.5 K/mcL (0.0-1.3); Neutrophils # 3.2 K/mcL (1.6-8.9); Platelet Count 147 K/mcL (140-400); Red Blood Count 2.65 M/mcL (4.19-5.50); Red Cell Distribution Width 20.6 % (11.5-14.5); Segmented Neutrophils % 68.7 %; White Blood Count 4.6 K/mcL (4.3-11.1)
[2021-08-22 01:56] LABS: Calcium 8.7 mg/dL (8.6-10.3); Magnesium 2.1 mg/dL (1.6-2.6)
[2021-08-22] MEDS: Levothyroxine 25 MCG TABLET PO SCH (05:23)
[2021-08-22] MEDS ORDERED: Lidocaine -MPF 2% 5 ML VIAL SQ ONE (13:03)
[2021-08-22] MEDS ORDERED: Ondansetron 4 MG/2 ML VIAL IVP ONE (13:03)
[2021-08-22] MEDS ORDERED: *HR* Propofol 500 MG/50 ML BOTTLE IVP ONE (13:03)
[2021-08-22] MEDS ORDERED: *HR* Vasopressin 20 UNIT/ML VIAL ONE (13:55)
[2021-08-22] MEDS ORDERED: 0.9 % Sodium Chloride Mini Bag 100 ML ONE (13:56)
[2021-08-22] MEDS ORDERED: *HR* Dextrose 50 % in Water (Syg) 50 ML SYRINGE IVP ONE (15:42)
[2021-08-23 03:03] LABS: Basophils % 0.5 %; Hematocrit 24.7 % (37.5-50.1); Immature Granulocytes % 0.5 % (0-4); Lymphocytes # 0.9 K/mcL (0.6-4.6); Lymphocytes % 14.8 %; Mean Corpuscular HGB Conc 32.4 g/dL (31.6-35.5); Mean Corpuscular Hemoglobin 30.9 pg (28.0-33.3); Mean Corpuscular Volume 95.4 fL (83.0-100.0); Mean Platelet Volume 12.6 fL (9.4-12.4); Monocytes # 0.8 K/mcL (0.0-1.3); Monocytes % 12.3 %; Neutrophils # 4.4 K/mcL (1.6-8.9); Platelet Count 137 K/mcL (140-400); Red Blood Count 2.59 M/mcL (4.19-5.50); Red Cell Distribution Width 20.6 % (11.5-14.5); Segmented Neutrophils % 71.9 %; White Blood Count 6.1 K/mcL (4.3-11.1)
[2021-08-23 03:22] LABS: Calcium 8.6 mg/dL (8.6-10.3); Phosphorous 3.7 mg/dL (2.7-4.5); Potassium 5.1 mEq/L (3.5-5.1)
[2021-08-23] MEDS: Levothyroxine 25 MCG TABLET PO SCH (06:09)
[2021-08-23] MEDS: Torsemide 20 MG TABLET PO SCH ×2 (09:31→15:45)
[2021-08-23] MEDS: Apixaban 2.5 MG TABLET PO SCH ×2 (09:31→20:31)
[2021-08-23] MEDS: *HR* HYDROcodone/Acet 5/325 mg TABLET PO PRN (20:31)
[2021-08-23] MEDS ORDERED: Sucralfate 1 GM TABLET PO SCH (21:00)
[2021-08-24 03:26] LABS: Basophils % 0.2 %; Hematocrit 24.6 % (37.5-50.1); Hemoglobin 7.8 g/dL (12.9-16.9); Immature Granulocytes % 0.2 % (0-4); Lymphocytes # 0.8 K/mcL (0.6-4.6); Mean Corpuscular HGB Conc 31.7 g/dL (31.6-35.5); Mean Corpuscular Hemoglobin 31.3 pg (28.0-33.3); Mean Corpuscular Volume 98.8 fL (83.0-100.0); Mean Platelet Volume 12.9 fL (9.4-12.4); Monocytes # 0.7 K/mcL (0.0-1.3); Monocytes % 12.6 %; Neutrophils # 3.7 K/mcL (1.6-8.9); Platelet Count 128 K/mcL (140-400); Red Blood Count 2.49 M/mcL (4.19-5.50); White Blood Count 5.1 K/mcL (4.3-11.1)
[2021-08-24 03:55] LABS: Calcium 8.7 mg/dL (8.6-10.3); Magnesium 1.9 mg/dL (1.6-2.6); Potassium 4.9 mEq/L (3.5-5.1)
[2021-08-24] MEDS: Levothyroxine 25 MCG TABLET PO SCH (06:39)
[2021-08-24 07:42] VITALS: BP 151/75; PULSE 59; TEMP 97.7; O2SAT 91
[2021-08-24] MEDS: Apixaban 2.5 MG TABLET PO SCH (09:52)
[2021-08-24] MEDS: Torsemide 20 MG TABLET PO SCH (09:54)
== END 2021-08-24 13:04 | disposition home health service (06) | DRG 280 ==
LOC: EMEROOARM 11:26 → 2ANU 11:26 → SUATTDRO 15:38 → 2ANU 16:47 → SUATTDRO 08-17 15:37
PROVIDERS: ADMIT Internal Medicine; ATTEND Internal Medicine
PROC: ENDOEBX (2021-08-22 11:55)

== ENCOUNTER 2021-09-28 10:40 | Inpatient (IN) ==
[2021-09-28 11:51] LABS: Basophils % 0.3 %; Hematocrit 22.9 % (37.5-50.1); Hemoglobin 7.3 g/dL (12.9-16.9); Immature Granulocytes % 0.6 % (0-4); Lymphocytes # 0.2 K/mcL (0.6-4.6); Lymphocytes % 6.9 %; Mean Corpuscular HGB Conc 31.9 g/dL (31.6-35.5); Mean Corpuscular Hemoglobin 31.7 pg (28.0-33.3); Mean Corpuscular Volume 99.6 fL (83.0-100.0); Mean Platelet Volume 11.4 fL (9.4-12.4); Monocytes % 0.9 %; Neutrophils # 2.9 K/mcL (1.6-8.9); Platelet Count 138 K/mcL (140-400); Red Cell Distribution Width 21.7 % (11.5-14.5); Segmented Neutrophils % 91.3 %; White Blood Count 3.2 K/mcL (4.3-11.1)
[2021-09-28 11:58] LABS: INR 1.6; Prothrombin Time 17.6 Seconds (9.4-12.1)
[2021-09-28 12:01] LABS: Activated Partial Thrombo Time 30.9 Seconds (26.0-36.0)
[2021-09-28 12:52] LABS: Calcium 9.4 mg/dL (8.6-10.3); Potassium 4.6 mEq/L (3.5-5.1); Troponin I 0.07 ng/mL (< 0.04)
[2021-09-28] MEDS ORDERED: Naloxone 0.4 MG/ML INJ IVP PRN (13:08)
[2021-09-28] MEDS ORDERED: Ondansetron 4 MG/2 ML VIAL IVP PRN (13:08)
[2021-09-28] MEDS ORDERED: Acetaminophen 325 MG TABLET PO PRN (13:08)
[2021-09-28 13:54] LABS: Influenza A PCR Negative (Negative); Influenza B PCR Negative (Negative); Resp. Syncytial Virus PCR Negative (Negative); SARS-CoV-2 by PCR (In House) Negative (Negative)
[2021-09-28 17:02] LABS: Total Protein,Pleural Fluid 3.2 g/dL
[2021-09-28 17:47] LABS: RBC,Pleural Fluid 18000 RBC/mcL
[2021-09-28] MEDS: Apixaban 2.5 MG TABLET PO SCH (20:39)
[2021-09-28] MEDS ORDERED: levoFLOXacin 750 MG/150 ML 750 MG/150 ML BAG IVPB SCH (21:00)
[2021-09-28 21:27] LABS: Appearance of Pleural Fl Cloudy (Clear)
[2021-09-28 21:33] LABS: Basophils,Pleural Fluid 0 %; Eosinophils,Pleural Fluid 0 %
[2021-09-28 22:29] LABS: Troponin I 0.12 ng/mL (< 0.04)
[2021-09-28] MEDS ORDERED: Albumin 25% 25gram/100mL 25 GM/100 ML IV.SOLN IVPB ONE (22:31)
[2021-09-28 23:01] LABS: Albumin 3.8 g/dL (3.5-5.7)
[2021-09-29 02:17] LABS: Basophils % 0.1 %; Hematocrit 18.4 % (37.5-50.1); Immature Granulocytes % 3.1 % (0-4); Lymphocytes # 0.4 K/mcL (0.6-4.6); Lymphocytes % 2.7 %; Mean Corpuscular HGB Conc 32.1 g/dL (31.6-35.5); Mean Corpuscular Hemoglobin 32.2 pg (28.0-33.3); Mean Corpuscular Volume 100.5 fL (83.0-100.0); Mean Platelet Volume 12.6 fL (9.4-12.4); Monocytes # 1.1 K/mcL (0.0-1.3); Monocytes % 7.1 %; Neutrophils # 13.2 K/mcL (1.6-8.9); Platelet Count 114 K/mcL (140-400); Red Blood Count 1.83 M/mcL (4.19-5.50); Red Cell Distribution Width 22.3 % (11.5-14.5); White Blood Count 15.2 K/mcL (4.3-11.1)
[2021-09-29 02:19] LABS: Hemoglobin 5.9 g/dL (12.9-16.9)
[2021-09-29 02:25] LABS: Albumin 3.3 g/dL (3.5-5.7); Albumin/Globulin Ratio 1.2 (1.1-2.2); Bilirubin,Direct 0.2 mg/dL (0.0-0.2); Bilirubin,Indirect 0.5 mg/dL (0.0-1.0); Bilirubin,Total 0.7 mg/dL (0.3-1.0); Calcium 8.9 mg/dL (8.6-10.3); Globulin 2.7 g/dL (2.4-3.5); Magnesium 2.2 mg/dL (1.6-2.6); Phosphorous 3.8 mg/dL (2.7-4.5); Potassium 4.8 mEq/L (3.5-5.1)
[2021-09-29] MEDS ORDERED: 0.9 % Sodium Chloride 250 ML ONE ×2 (03:41→11:48)
[2021-09-29] MEDS: Levothyroxine 25 MCG TABLET PO SCH (05:33)
[2021-09-29] MEDS: amLODIPine 5 MG TABLET PO SCH (07:48)
[2021-09-29] MEDS: Apixaban 2.5 MG TABLET PO SCH (07:55)
[2021-09-29] MEDS: Piperacillin/Tazobactam 3.375 GM in 0.9 % Sodium Chloride Mini Bag 100 ML IVPB SCH ×3 (09:20→23:57)
[2021-09-29] MEDS: *HR* OxyCODONE Immed Rel 5 MG TABLET PO PRN (16:23)
[2021-09-29] MEDS: Morphine Sulfate 2 MG/ML SYRINGE IVP PRN (17:59)
[2021-09-30] MEDS: Morphine Sulfate 2 MG/ML SYRINGE IVP PRN (00:01)
[2021-09-30 02:00] LABS: Basophils % 0.2 %; Hematocrit 22.7 % (37.5-50.1); Hemoglobin 7.2 g/dL (12.9-16.9); Immature Granulocytes % 0.9 % (0-4); Lymphocytes # 0.7 K/mcL (0.6-4.6); Lymphocytes % 6.9 %; Mean Corpuscular HGB Conc 31.7 g/dL (31.6-35.5); Mean Corpuscular Volume 100.9 fL (83.0-100.0); Mean Platelet Volume 12.9 fL (9.4-12.4); Monocytes # 0.9 K/mcL (0.0-1.3); Monocytes % 8.8 %; Neutrophils # 8.5 K/mcL (1.6-8.9); Platelet Count 110 K/mcL (140-400); Red Blood Count 2.25 M/mcL (4.19-5.50); Red Cell Distribution Width 22.4 % (11.5-14.5); Segmented Neutrophils % 83.2 %; White Blood Count 10.2 K/mcL (4.3-11.1)
[2021-09-30 02:06] LABS: Calcium 8.7 mg/dL (8.6-10.3); Magnesium 2.3 mg/dL (1.6-2.6); Potassium 5.8 mEq/L (3.5-5.1)
[2021-09-30] MEDS: Levothyroxine 25 MCG TABLET PO SCH (06:03)
[2021-09-30] MEDS: amLODIPine 5 MG TABLET PO SCH (07:41)
[2021-09-30] MEDS ORDERED: *HR* Dextrose 50 % in Water (Syg) 50 ML SYRINGE IVP ONE ×2 (07:42→17:19)
[2021-09-30] MEDS: Piperacillin/Tazobactam 3.375 GM in 0.9 % Sodium Chloride Mini Bag 100 ML IVPB SCH ×3 (07:42→23:37)
[2021-09-30] MEDS ORDERED: Insulin Human Regular 10 UNIT in 0.9 % Sodium Chloride 10 ML IV ONE ×2 (07:42→17:19)
[2021-09-30] MEDS: Calcium Gluconate 1gm/50mL 1 GM/50 ML BAG IVPB SCH ×4 (08:46→18:22)
[2021-09-30] MEDS: *HR* OxyCODONE Immed Rel 5 MG TABLET PO PRN (13:16)
[2021-09-30 14:22] LABS: Calcium 9.1 mg/dL (8.6-10.3); Potassium 5.4 mEq/L (3.5-5.1)
[2021-09-30 20:40] LABS: Hematocrit 22.8 % (37.5-50.1); Hemoglobin 7.3 g/dL (12.9-16.9)
[2021-09-30] MEDS ORDERED: Famotidine 20 MG TABLET PO SCH (21:00)
[2021-09-30] MEDS ORDERED: Morphine Sulfate 2 MG/ML SYRINGE IVP ONE (21:38)
[2021-09-30] MEDS: Lactobacillus 1 EACH CAP.SPRINK PO SCH (21:52)
[2021-09-30 23:19] LABS: Potassium 5.7 mEq/L (3.5-5.1); Troponin I 0.04 ng/mL (< 0.04)
[2021-10-01] MEDS ORDERED: SODIUM ZIRCONIUM CYCLOSILICATE 5 GM POWD.PACK PO ONE (00:50)
[2021-10-01 04:36] LABS: Fluid Source for Albumin PLEURAL FL
[2021-10-01 05:11] LABS: Hematocrit 22.2 % (37.5-50.1); Hemoglobin 7.2 g/dL (12.9-16.9); Mean Corpuscular HGB Conc 32.4 g/dL (31.6-35.5); Mean Corpuscular Hemoglobin 32.7 pg (28.0-33.3); Mean Corpuscular Volume 100.9 fL (83.0-100.0); Mean Platelet Volume 12.4 fL (9.4-12.4); Platelet Count 110 K/mcL (140-400); Red Cell Distribution Width 21.5 % (11.5-14.5); White Blood Count 7.4 K/mcL (4.3-11.1)
[2021-10-01 05:31] LABS: Calcium 9.1 mg/dL (8.6-10.3); Potassium 5.4 mEq/L (3.5-5.1)
[2021-10-01] MEDS: Levothyroxine 25 MCG TABLET PO SCH (05:34)
[2021-10-01] MEDS: amLODIPine 5 MG TABLET PO SCH (08:28)
[2021-10-01] MEDS: Lactobacillus 1 EACH CAP.SPRINK PO SCH ×2 (08:28→21:05)
[2021-10-01] MEDS: Piperacillin/Tazobactam 3.375 GM in 0.9 % Sodium Chloride Mini Bag 100 ML IVPB SCH ×3 (08:28→23:47)
[2021-10-01] MEDS ORDERED: Iron Sucrose Complex 200 MG in 0.9 % Sodium Chloride 100 ML IVPB ONE (15:29)
[2021-10-01] MEDS ORDERED: Cyanocobalamin (B-12) 1,000 MCG/ML VIAL SQ ONE (15:30)
[2021-10-01] MEDS: Famotidine 20 MG TABLET PO SCH (21:05)
[2021-10-02 02:53] LABS: Basophils % 0.2 %; Hemoglobin 7.8 g/dL (12.9-16.9); Immature Granulocytes % 1.4 % (0-4); Lymphocytes # 0.6 K/mcL (0.6-4.6); Lymphocytes % 9.1 %; Mean Corpuscular HGB Conc 32.5 g/dL (31.6-35.5); Mean Corpuscular Hemoglobin 32.4 pg (28.0-33.3); Mean Corpuscular Volume 99.6 fL (83.0-100.0); Mean Platelet Volume 12.8 fL (9.4-12.4); Monocytes # 0.6 K/mcL (0.0-1.3); Monocytes % 9.2 %; Neutrophils # 5.2 K/mcL (1.6-8.9); Platelet Count 117 K/mcL (140-400); Red Blood Count 2.41 M/mcL (4.19-5.50); Red Cell Distribution Width 21.2 % (11.5-14.5); Segmented Neutrophils % 80.1 %; White Blood Count 6.5 K/mcL (4.3-11.1)
[2021-10-02 03:08] LABS: Albumin 3.6 g/dL (3.5-5.7); Bilirubin,Direct 0.7 mg/dL (0.0-0.2); Bilirubin,Indirect 0.8 mg/dL (0.0-1.0); Bilirubin,Total 1.5 mg/dL (0.3-1.0); Calcium 9.1 mg/dL (8.6-10.3); Globulin 3.6 g/dL (2.4-3.5); Magnesium 2.5 mg/dL (1.6-2.6); Total Protein 7.2 g/dL (6.4-8.9)
[2021-10-02] MEDS: Levothyroxine 25 MCG TABLET PO SCH (05:37)
[2021-10-02] MEDS: Lactobacillus 1 EACH CAP.SPRINK PO SCH ×2 (09:06→20:36)
[2021-10-02] MEDS: Piperacillin/Tazobactam 3.375 GM in 0.9 % Sodium Chloride Mini Bag 100 ML IVPB SCH ×2 (09:06→20:35)
[2021-10-02] MEDS: SODIUM ZIRCONIUM CYCLOSILICATE 5 GM POWD.PACK PO SCH (09:07)
[2021-10-02] MEDS: amLODIPine 5 MG TABLET PO SCH (09:07)
[2021-10-02] MEDS: Famotidine 20 MG TABLET PO SCH (20:36)
[2021-10-03 04:33] LABS: Mean Corpuscular Volume 99.1 fL (83.0-100.0); White Blood Count 6.6 K/mcL (4.3-11.1)
[2021-10-03 04:35] LABS: Basophils % 0.5 %; Hematocrit 23.2 % (37.5-50.1); Hemoglobin 7.6 g/dL (12.9-16.9); Immature Granulocytes % 1.8 % (0-4); Lymphocytes # 0.6 K/mcL (0.6-4.6); Mean Corpuscular HGB Conc 32.8 g/dL (31.6-35.5); Mean Corpuscular Hemoglobin 32.5 pg (28.0-33.3); Mean Platelet Volume 12.7 fL (9.4-12.4); Monocytes # 0.8 K/mcL (0.0-1.3); Monocytes % 11.3 %; Neutrophils # 5.1 K/mcL (1.6-8.9); Platelet Count 106 K/mcL (140-400); Red Blood Count 2.34 M/mcL (4.19-5.50); Red Cell Distribution Width 20.9 % (11.5-14.5); Segmented Neutrophils % 77.4 %
[2021-10-03] MEDS: Levothyroxine 25 MCG TABLET PO SCH (05:40)
[2021-10-03 06:13] LABS: Calcium 8.7 mg/dL (8.6-10.3); Magnesium 2.6 mg/dL (1.6-2.6); Phosphorous 3.7 mg/dL (2.7-4.5); Potassium 4.4 mEq/L (3.5-5.1)
[2021-10-03] MEDS: SODIUM ZIRCONIUM CYCLOSILICATE 5 GM POWD.PACK PO SCH (09:45)
[2021-10-03] MEDS: amLODIPine 5 MG TABLET PO SCH (09:46)
[2021-10-03] MEDS: Piperacillin/Tazobactam 3.375 GM in 0.9 % Sodium Chloride Mini Bag 100 ML IVPB SCH ×2 (09:46→20:07)
[2021-10-03] MEDS: Lactobacillus 1 EACH CAP.SPRINK PO SCH ×2 (09:46→20:07)
[2021-10-03 11:30] LABS: VBG HCO3 17 mEq/L (21-27); VBG PCO2 21 mmHg (41-51); VBG PH 7.51 pH Units (7.32-7.42); VBG PO2 184 mmHg (25-50)
[2021-10-03] MEDS ORDERED: Morphine Sulfate 2 MG/ML SYRINGE IVP PRN (13:57)
[2021-10-03] MEDS: Lactulose Oral Soln 20 GM/30 ML UDC PO SCH (20:06)
[2021-10-03] MEDS: Famotidine 20 MG TABLET PO SCH (20:07)
[2021-10-04 03:35] LABS: Basophils % 0.3 %; Hematocrit 24.1 % (37.5-50.1); Hemoglobin 7.7 g/dL (12.9-16.9); Lymphocytes # 0.7 K/mcL (0.6-4.6); Lymphocytes % 11.7 %; Mean Corpuscular Hemoglobin 31.8 pg (28.0-33.3); Mean Corpuscular Volume 99.6 fL (83.0-100.0); Mean Platelet Volume 12.8 fL (9.4-12.4); Monocytes # 0.6 K/mcL (0.0-1.3); Monocytes % 10.5 %; Neutrophils # 4.4 K/mcL (1.6-8.9); Platelet Count 116 K/mcL (140-400); Red Blood Count 2.42 M/mcL (4.19-5.50); Red Cell Distribution Width 20.5 % (11.5-14.5); Segmented Neutrophils % 76.5 %; White Blood Count 5.7 K/mcL (4.3-11.1)
[2021-10-04 04:00] LABS: Calcium 8.8 mg/dL (8.6-10.3); Magnesium 2.6 mg/dL (1.6-2.6)
[2021-10-04] MEDS: Levothyroxine 25 MCG TABLET PO SCH (06:37)
[2021-10-04] MEDS: Piperacillin/Tazobactam 3.375 GM in 0.9 % Sodium Chloride Mini Bag 100 ML IVPB SCH ×2 (09:13→21:50)
[2021-10-04] MEDS: amLODIPine 5 MG TABLET PO SCH (09:14)
[2021-10-04] MEDS: Lactulose Oral Soln 20 GM/30 ML UDC PO SCH ×2 (09:14→21:56)
[2021-10-04] MEDS: Lactobacillus 1 EACH CAP.SPRINK PO SCH ×2 (09:14→21:56)
[2021-10-04] MEDS: SODIUM ZIRCONIUM CYCLOSILICATE 5 GM POWD.PACK PO SCH (09:14)
[2021-10-04] MEDS: Famotidine 20 MG TABLET PO SCH (21:55)
[2021-10-05 02:02] LABS: Basophils % 0.5 %; Eosinophils # 0.2 K/mcL (0.0-0.6); Eosinophils % 2.8 %; Hematocrit 24.6 % (37.5-50.1); Hemoglobin 7.9 g/dL (12.9-16.9); Immature Granulocytes % 0.9 % (0-4); Lymphocytes # 0.8 K/mcL (0.6-4.6); Lymphocytes % 13.5 %; Mean Corpuscular HGB Conc 32.1 g/dL (31.6-35.5); Mean Corpuscular Volume 99.6 fL (83.0-100.0); Mean Platelet Volume 11.5 fL (9.4-12.4); Monocytes # 0.6 K/mcL (0.0-1.3); Monocytes % 9.8 %; Neutrophils # 4.1 K/mcL (1.6-8.9); Platelet Count 122 K/mcL (140-400); Red Blood Count 2.47 M/mcL (4.19-5.50); Red Cell Distribution Width 20.8 % (11.5-14.5); Segmented Neutrophils % 72.5 %; White Blood Count 5.7 K/mcL (4.3-11.1)
[2021-10-05 02:18] LABS: Calcium 8.7 mg/dL (8.6-10.3); Magnesium 2.6 mg/dL (1.6-2.6)
[2021-10-05] MEDS: Levothyroxine 25 MCG TABLET PO SCH (06:35)
[2021-10-05] MEDS: Lactobacillus 1 EACH CAP.SPRINK PO SCH ×2 (08:56→20:08)
[2021-10-05] MEDS: amLODIPine 5 MG TABLET PO SCH (08:56)
[2021-10-05] MEDS: Piperacillin/Tazobactam 3.375 GM in 0.9 % Sodium Chloride Mini Bag 100 ML IVPB SCH (08:57)
[2021-10-05] MEDS: Lactulose Oral Soln 20 GM/30 ML UDC PO SCH ×2 (09:01→20:08)
[2021-10-05] MEDS ORDERED: Piperacillin/Tazobactam 3.375 GM in 0.9 % Sodium Chloride Mini Bag 100 ML IVPB SCH (17:00)
[2021-10-05] MEDS: Famotidine 20 MG TABLET PO SCH (20:07)
[2021-10-06] MEDS: Levothyroxine 25 MCG TABLET PO SCH (05:32)
[2021-10-06] MEDS: Lactulose Oral Soln 20 GM/30 ML UDC PO SCH ×3 (10:09→20:07)
[2021-10-06] MEDS: Lactobacillus 1 EACH CAP.SPRINK PO SCH ×2 (10:10→20:08)
[2021-10-06] MEDS: amLODIPine 5 MG TABLET PO SCH (10:10)
[2021-10-06] MEDS: Amoxicillin/Clavulanate 500 MG TABLET PO SCH ×2 (10:16→15:49)
[2021-10-06] MEDS: Famotidine 20 MG TABLET PO SCH (20:08)
[2021-10-07 01:16] LABS: Basophils % 0.2 %; Eosinophils # 0.3 K/mcL (0.0-0.6); Eosinophils % 3.8 %; Hematocrit 25.1 % (37.5-50.1); Immature Granulocytes % 0.5 % (0-4); Lymphocytes # 0.9 K/mcL (0.6-4.6); Lymphocytes % 14.1 %; Mean Corpuscular HGB Conc 31.9 g/dL (31.6-35.5); Mean Corpuscular Volume 100.4 fL (83.0-100.0); Mean Platelet Volume 12.7 fL (9.4-12.4); Monocytes # 0.6 K/mcL (0.0-1.3); Monocytes % 8.6 %; Neutrophils # 4.8 K/mcL (1.6-8.9); Platelet Count 158 K/mcL (140-400); Red Cell Distribution Width 20.2 % (11.5-14.5); Segmented Neutrophils % 72.8 %; White Blood Count 6.5 K/mcL (4.3-11.1)
[2021-10-07 01:38] LABS: Calcium 8.5 mg/dL (8.6-10.3); Magnesium 2.4 mg/dL (1.6-2.6); Potassium 4.2 mEq/L (3.5-5.1)
[2021-10-07] MEDS: Levothyroxine 25 MCG TABLET PO SCH (05:24)
[2021-10-07] MEDS: Lactulose Oral Soln 20 GM/30 ML UDC PO SCH ×2 (09:12→19:44)
[2021-10-07] MEDS: Amoxicillin/Clavulanate 500 MG TABLET PO SCH ×2 (09:13→15:36)
[2021-10-07] MEDS: amLODIPine 5 MG TABLET PO SCH (09:13)
[2021-10-07] MEDS: Lactobacillus 1 EACH CAP.SPRINK PO SCH ×2 (09:13→19:41)
[2021-10-07] MEDS: Famotidine 20 MG TABLET PO SCH (19:41)
[2021-10-08 05:04] LABS: Basophils % 0.3 %; Hematocrit 25.6 % (37.5-50.1); Hemoglobin 8.2 g/dL (12.9-16.9); Immature Granulocytes % 0.3 % (0-4); Lymphocytes # 0.9 K/mcL (0.6-4.6); Lymphocytes % 13.5 %; Mean Corpuscular Hemoglobin 32.5 pg (28.0-33.3); Mean Corpuscular Volume 101.6 fL (83.0-100.0); Mean Platelet Volume 12.7 fL (9.4-12.4); Monocytes # 0.6 K/mcL (0.0-1.3); Monocytes % 8.6 %; Neutrophils # 5.4 K/mcL (1.6-8.9); Platelet Count 155 K/mcL (140-400); Red Blood Count 2.52 M/mcL (4.19-5.50); Red Cell Distribution Width 19.9 % (11.5-14.5); Segmented Neutrophils % 77.3 %; White Blood Count 6.9 K/mcL (4.3-11.1)
[2021-10-08 05:19] LABS: Calcium 8.7 mg/dL (8.6-10.3); Magnesium 2.4 mg/dL (1.6-2.6); Potassium 4.5 mEq/L (3.5-5.1)
[2021-10-08] MEDS: Levothyroxine 25 MCG TABLET PO SCH (05:40)
[2021-10-08] MEDS: Lactobacillus 1 EACH CAP.SPRINK PO SCH ×2 (10:36→20:09)
[2021-10-08] MEDS: amLODIPine 5 MG TABLET PO SCH (10:36)
[2021-10-08] MEDS: Lactulose Oral Soln 20 GM/30 ML UDC PO SCH ×4 (10:37→20:15)
[2021-10-08] MEDS: Amoxicillin/Clavulanate 500 MG TABLET PO SCH ×2 (10:37→16:03)
[2021-10-08] MEDS: Famotidine 20 MG TABLET PO SCH (20:09)
[2021-10-09] MEDS: Levothyroxine 25 MCG TABLET PO SCH (06:27)
[2021-10-09] MEDS: Amoxicillin/Clavulanate 500 MG TABLET PO SCH ×2 (10:07→17:14)
[2021-10-09] MEDS: Lactobacillus 1 EACH CAP.SPRINK PO SCH ×2 (10:07→19:52)
[2021-10-09] MEDS: amLODIPine 5 MG TABLET PO SCH (10:07)
[2021-10-09] MEDS: Lactulose Oral Soln 20 GM/30 ML UDC PO SCH ×2 (10:08→19:53)
[2021-10-09] MEDS: Famotidine 20 MG TABLET PO SCH (19:53)
[2021-10-10] MEDS: Levothyroxine 25 MCG TABLET PO SCH (06:46)
[2021-10-10] MEDS: Lactobacillus 1 EACH CAP.SPRINK PO SCH (09:40)
[2021-10-10] MEDS: Amoxicillin/Clavulanate 500 MG TABLET PO SCH ×2 (09:40→16:12)
[2021-10-10] MEDS: amLODIPine 5 MG TABLET PO SCH (09:41)
[2021-10-10] MEDS: Lactulose Oral Soln 20 GM/30 ML UDC PO SCH (09:41)
[2021-10-10 13:22] LABS: Influenza A PCR Negative (Negative); Influenza B PCR Negative (Negative); Resp. Syncytial Virus PCR Negative (Negative)
[2021-10-10 13:27] LABS: SARS-CoV-2 by PCR (In House) Negative (Negative)
[2021-10-10 15:57] VITALS: BP 152/69; PULSE 57; TEMP 97.6; O2SAT 93
[2021-10-11] MEDS ORDERED: Torsemide 20 MG TABLET PO SCH (09:00)
== END 2021-10-10 16:31 | disposition other institution (70) | DRG 264 ==
LOC: 2ANU 10:40 → EMEROOARM 10:40 → SUATTDRO 16:03 → 2ANU 17:18 → SUATTDRO 09-29 12:44
PROVIDERS: ADMIT Pharmacist; ATTEND Internal Medicine

== ENCOUNTER 2021-10-13 16:29 | Inpatient (IN) ==
[2021-10-13] MEDS ORDERED: Naloxone 0.4 MG/ML INJ IVP PRN (22:59)
[2021-10-13] MEDS ORDERED: Melatonin 3 MG TABLET PO PRN (22:59)
[2021-10-14] MEDS: Levothyroxine 25 MCG TABLET PO SCH (06:01)
[2021-10-14 06:58] LABS: Basophils % 0.6 %; Hematocrit 24.6 % (37.5-50.1); Hemoglobin 7.6 g/dL (12.9-16.9); Immature Granulocytes % 0.4 % (0-4); Lymphocytes # 0.7 K/mcL (0.6-4.6); Lymphocytes % 13.5 %; Mean Corpuscular HGB Conc 30.9 g/dL (31.6-35.5); Mean Corpuscular Hemoglobin 31.8 pg (28.0-33.3); Mean Corpuscular Volume 102.9 fL (83.0-100.0); Mean Platelet Volume 12.4 fL (9.4-12.4); Monocytes # 0.8 K/mcL (0.0-1.3); Monocytes % 14.9 %; Neutrophils # 3.7 K/mcL (1.6-8.9); Platelet Count 183 K/mcL (140-400); Red Blood Count 2.39 M/mcL (4.19-5.50); Red Cell Distribution Width 17.9 % (11.5-14.5); Segmented Neutrophils % 70.6 %; White Blood Count 5.2 K/mcL (4.3-11.1)
[2021-10-14 07:04] LABS: INR 1.3; Prothrombin Time 14.8 Seconds (9.4-12.1)
[2021-10-14 07:20] LABS: Albumin 3.4 g/dL (3.5-5.7); Albumin/Globulin Ratio 1.1 (1.1-2.2); Bilirubin,Total 0.8 mg/dL (0.3-1.0); Calcium 8.8 mg/dL (8.6-10.3); Globulin 3.2 g/dL (2.4-3.5); Magnesium 2.3 mg/dL (1.6-2.6); Potassium 4.9 mEq/L (3.5-5.1); Total Protein 6.6 g/dL (6.4-8.9)
[2021-10-14] MEDS: Furosemide 20 MG/2 ML VIAL IVP SCH ×2 (09:09→20:07)
[2021-10-14] MEDS: Lactulose Oral Soln 20 GM/30 ML UDC PO SCH ×2 (09:14→20:09)
[2021-10-15 01:00] LABS: Basophils % 0.4 %; Hematocrit 25.1 % (37.5-50.1); Hemoglobin 7.9 g/dL (12.9-16.9); Immature Granulocytes % 0.4 % (0-4); Lymphocytes # 0.8 K/mcL (0.6-4.6); Lymphocytes % 15.5 %; Mean Corpuscular HGB Conc 31.5 g/dL (31.6-35.5); Mean Corpuscular Hemoglobin 32.4 pg (28.0-33.3); Mean Corpuscular Volume 102.9 fL (83.0-100.0); Mean Platelet Volume 11.9 fL (9.4-12.4); Monocytes # 0.9 K/mcL (0.0-1.3); Monocytes % 15.9 %; Neutrophils # 3.7 K/mcL (1.6-8.9); Platelet Count 196 K/mcL (140-400); Red Blood Count 2.44 M/mcL (4.19-5.50); Segmented Neutrophils % 67.8 %; White Blood Count 5.4 K/mcL (4.3-11.1)
[2021-10-15 01:20] LABS: Albumin 3.4 g/dL (3.5-5.7); Albumin/Globulin Ratio 0.9 (1.1-2.2); Bilirubin,Total 0.7 mg/dL (0.3-1.0); Calcium 9.1 mg/dL (8.6-10.3); Globulin 3.7 g/dL (2.4-3.5); Potassium 4.8 mEq/L (3.5-5.1); Total Protein 7.1 g/dL (6.4-8.9)
[2021-10-15] MEDS: Levothyroxine 25 MCG TABLET PO SCH (05:14)
[2021-10-15] MEDS: Lactulose Oral Soln 20 GM/30 ML UDC PO SCH ×2 (08:51→19:59)
[2021-10-15] MEDS: Furosemide 20 MG/2 ML VIAL IVP SCH ×2 (09:00→19:59)
[2021-10-15] MEDS ORDERED: Ipratropium/Albuterol Neb 3 ML IH PRN (16:34)
[2021-10-15] MEDS: Ipratropium/Albuterol Neb 3 ML IH SCH (22:36)
[2021-10-16 02:11] LABS: Basophils % 0.6 %; Hematocrit 24.5 % (37.5-50.1); Hemoglobin 7.7 g/dL (12.9-16.9); Immature Granulocytes % 0.4 % (0-4); Lymphocytes # 0.9 K/mcL (0.6-4.6); Lymphocytes % 19.2 %; Mean Corpuscular HGB Conc 31.4 g/dL (31.6-35.5); Mean Corpuscular Hemoglobin 32.2 pg (28.0-33.3); Mean Corpuscular Volume 102.5 fL (83.0-100.0); Monocytes # 0.8 K/mcL (0.0-1.3); Monocytes % 17.4 %; Platelet Count 183 K/mcL (140-400); Red Blood Count 2.39 M/mcL (4.19-5.50); Segmented Neutrophils % 62.4 %; White Blood Count 4.8 K/mcL (4.3-11.1)
[2021-10-16 02:32] LABS: Calcium 8.9 mg/dL (8.6-10.3); INR 1.3; Potassium 4.6 mEq/L (3.5-5.1); Prothrombin Time 14.8 Seconds (9.4-12.1)
[2021-10-16] MEDS: Ipratropium/Albuterol Neb 3 ML IH SCH ×4 (04:05→21:11)
[2021-10-16] MEDS: Levothyroxine 25 MCG TABLET PO SCH (05:25)
[2021-10-16] MEDS: Lactulose Oral Soln 20 GM/30 ML UDC PO SCH ×2 (07:59→19:21)
[2021-10-16] MEDS: Furosemide 20 MG/2 ML VIAL IVP SCH ×2 (08:08→19:28)
[2021-10-16] MEDS ORDERED: *HR* FentaNYL (PF) 100 MCG/2 ML VIAL ONE (10:42)
[2021-10-16] MEDS ORDERED: Lidocaine/EPI 1:100k 1% 20 ML VIAL INFILT ONE (10:43)
[2021-10-16] MEDS ORDERED: Acetaminophen 325 MG TABLET PO PRN (16:40)
[2021-10-16] MEDS: *HR* HYDROcodone/Acet 5/325 mg TABLET PO PRN (19:28)
[2021-10-17 03:24] LABS: Basophils % 0.4 %; Hematocrit 25.7 % (37.5-50.1); Hemoglobin 8.1 g/dL (12.9-16.9); Immature Granulocytes % 0.4 % (0-4); Lymphocytes # 0.8 K/mcL (0.6-4.6); Lymphocytes % 17.3 %; Mean Corpuscular HGB Conc 31.5 g/dL (31.6-35.5); Mean Corpuscular Hemoglobin 32.8 pg (28.0-33.3); Mean Platelet Volume 11.9 fL (9.4-12.4); Monocytes # 0.8 K/mcL (0.0-1.3); Monocytes % 17.1 %; Platelet Count 178 K/mcL (140-400); Red Blood Count 2.47 M/mcL (4.19-5.50); Red Cell Distribution Width 17.7 % (11.5-14.5); Segmented Neutrophils % 64.8 %; White Blood Count 4.6 K/mcL (4.3-11.1)
[2021-10-17 03:40] LABS: Potassium 4.5 mEq/L (3.5-5.1)
[2021-10-17] MEDS: Ipratropium/Albuterol Neb 3 ML IH SCH ×4 (04:10→21:37)
[2021-10-17] MEDS: Levothyroxine 25 MCG TABLET PO SCH (06:36)
[2021-10-17] MEDS: *HR* HYDROcodone/Acet 5/325 mg TABLET PO PRN (06:39)
[2021-10-17] MEDS: Furosemide 20 MG/2 ML VIAL IVP SCH ×2 (09:15→20:13)
[2021-10-17] MEDS: Lactulose Oral Soln 20 GM/30 ML UDC PO SCH ×2 (09:16→20:13)
[2021-10-18] MEDS: Ipratropium/Albuterol Neb 3 ML IH SCH ×4 (03:47→22:42)
[2021-10-18] MEDS: Levothyroxine 25 MCG TABLET PO SCH (05:43)
[2021-10-18] MEDS: Furosemide 20 MG/2 ML VIAL IVP SCH ×2 (10:04→21:11)
[2021-10-18] MEDS: Lactulose Oral Soln 20 GM/30 ML UDC PO SCH ×2 (10:04→21:11)
[2021-10-19] MEDS: Ipratropium/Albuterol Neb 3 ML IH SCH ×2 (03:38→10:29)
[2021-10-19] MEDS: Levothyroxine 25 MCG TABLET PO SCH (05:47)
[2021-10-19] MEDS: Furosemide 20 MG/2 ML VIAL IVP SCH (09:30)
[2021-10-19] MEDS: Lactulose Oral Soln 20 GM/30 ML UDC PO SCH (09:30)
[2021-10-19 11:09] VITALS: BP 111/61; PULSE 65; TEMP 97.9; O2SAT 97
[2021-10-19 13:06] LABS: Adenovirus Not Detected (Not Detect); Coronavirus 229E Not Detected (Not Detect); Coronavirus HKU1 Not Detected (Not Detect); Coronavirus NL63 Not Detected (Not Detect); Coronavirus OC43 Not Detected (Not Detect); Human Metapneumovirus Not Detected (Not Detect); Human Rhinovirus/Enterovirus Not Detected (Not Detect); Influenza A Subtype 2009 H1 Not Detected (Not Detect); Influenza B Not Detected (Not Detect); Parainfluenza Virus 1 Not Detected (Not Detect); SARS-CoV-2 Not Detected (Not Detect)
[2021-10-19 13:07] LABS: Bordetella Pertussis Not Detected (Not Detect); Chlamydophila pneumoniae Not Detected (Not Detect); Mycoplasma pneumoniae Not Detected (Not Detect); Parainfluenza Virus 2 Not Detected (Not Detect); Parainfluenza Virus 3 Not Detected (Not Detect); Parainfluenza Virus 4 Not Detected (Not Detect); Respiratory Syncytial Virus Not Detected (Not Detect)
== END 2021-10-19 15:09 | DRG 291 ==
LOC: 2ANU → SUATTDRO 21:50
PROVIDERS: ADMIT Pharmacist; ATTEND Internal Medicine

== ENCOUNTER 2021-11-17 17:16 | Observation (INO) ==
[2021-11-17] MEDS ORDERED: *HR* OxyCODONE/APAP 5/325 TABLET PO ONE (23:16)
[2021-11-17 23:30] LABS: Basophils % 0.1 %; Hematocrit 25.3 % (37.5-50.1); Hemoglobin 8.2 g/dL (12.9-16.9); Lymphocytes # 0.7 K/mcL (0.6-4.6); Lymphocytes % 5.1 %; Mean Corpuscular HGB Conc 32.4 g/dL (31.6-35.5); Mean Corpuscular Hemoglobin 33.3 pg (28.0-33.3); Mean Corpuscular Volume 102.8 fL (83.0-100.0); Mean Platelet Volume 11.5 fL (9.4-12.4); Monocytes % 7.4 %; Neutrophils # 11.7 K/mcL (1.6-8.9); Platelet Count 188 K/mcL (140-400); Red Blood Count 2.46 M/mcL (4.19-5.50); Red Cell Distribution Width 15.5 % (11.5-14.5); Segmented Neutrophils % 86.4 %; White Blood Count 13.5 K/mcL (4.3-11.1)
[2021-11-17 23:43] LABS: Calcium 9.1 mg/dL (8.6-10.3); Potassium 4.5 mEq/L (3.5-5.1)
[2021-11-18] MEDS ORDERED: Piperacillin/Tazobactam 3.375 GM in 0.9 % Sodium Chloride Mini Bag 100 ML IVPB ONE (07:49)
[2021-11-18] MEDS ORDERED: Iopamidol - 370 500 ML MLS IVP ONE ×2 (07:49→07:52)
[2021-11-18] MEDS ORDERED: Clindamycin 600 MG/50 ML 600 MG/50 ML IV.SOLN IVPB ONE (07:53)
[2021-11-18] MEDS ORDERED: Vancomycin 1,500 MG/265 ML IV.SOLN IVPB ONE (07:54)
[2021-11-18] MEDS ORDERED: 0.9 % Sodium Chloride 1,000 ML IVC ONE (07:55)
[2021-11-18 08:18] LABS: Bacteria,Urine Few per hpf (None-Few); Bilirubin,Urine Negative (Negative); Blood,Urine Negative (Negative); Clarity,Urine Clear (Clear); Color,Urine Yellow (Yellow); Glucose,Urine (UA) Normal (Normal); Hyaline Casts,Urine Few per lpf (None Seen); Ketones,Urine Negative (Negative); Leukocyte Esterase,Urine Negative (Negative); Nitrite,Urine Negative (Negative); PH,Urine 6.5 pH Units (5.0-8.0); Protein,Urine 30 mg/dL (Neg-Trace); RBC,Urine 0-3 per hpf (0-3); Specific Gravity,Urine 1.015 (1.010-1.025); Urobilinogen,Urine Normal (Normal); WBC,Urine 0-3 per hpf (0-3)
[2021-11-18] MEDS ORDERED: Naloxone 0.4 MG/ML INJ IVP PRN (10:25)
[2021-11-18] MEDS ORDERED: Furosemide 40 MG/4 ML VIAL IVP ONE (16:11)
[2021-11-18] MEDS ORDERED: Acetaminophen 325 MG TABLET PO PRN (16:11)
[2021-11-18] MEDS: Apixaban 2.5 MG TABLET PO SCH (21:11)
[2021-11-19 05:00] LABS: Basophils % 0.1 %; Hematocrit 21.1 % (37.5-50.1); Hemoglobin 6.8 g/dL (12.9-16.9); Immature Granulocytes % 0.6 % (0-4); Lymphocytes # 0.7 K/mcL (0.6-4.6); Lymphocytes % 6.3 %; Mean Corpuscular HGB Conc 32.2 g/dL (31.6-35.5); Mean Corpuscular Volume 102.4 fL (83.0-100.0); Mean Platelet Volume 11.3 fL (9.4-12.4); Monocytes # 0.8 K/mcL (0.0-1.3); Neutrophils # 9.3 K/mcL (1.6-8.9); Platelet Count 159 K/mcL (140-400); Red Blood Count 2.06 M/mcL (4.19-5.50); Red Cell Distribution Width 15.6 % (11.5-14.5); White Blood Count 10.8 K/mcL (4.3-11.1)
[2021-11-19 05:07] LABS: Calcium 8.5 mg/dL (8.6-10.3); Potassium 4.3 mEq/L (3.5-5.1)
[2021-11-19] MEDS: Levothyroxine 25 MCG TABLET PO SCH (05:40)
[2021-11-19] MEDS ORDERED: Vancomycin 1,250 MG/262.5 ML IV.SOLN IVPB SCH (08:00)
[2021-11-19] MEDS ORDERED: 0.9 % Sodium Chloride 250 ML ONE (09:35)
[2021-11-19] MEDS: cefTRIAXone 1,000 MG in 0.9 % Sodium Chloride 10 ML IVP SCH (09:37)
[2021-11-19] MEDS: Apixaban 2.5 MG TABLET PO SCH ×2 (09:38→22:04)
[2021-11-19] MEDS: lisinopriL 5 MG TABLET PO SCH (09:38)
[2021-11-19] MEDS: Torsemide 20 MG TABLET PO SCH (11:48)
[2021-11-19 14:54] LABS: Hematocrit 26.4 % (37.5-50.1)
[2021-11-19 15:02] LABS: Hemoglobin 8.5 g/dL (12.9-16.9)
[2021-11-20 04:11] LABS: Basophils % 0.2 %; Hematocrit 23.9 % (37.5-50.1); Hemoglobin 7.8 g/dL (12.9-16.9); Immature Granulocytes % 0.7 % (0-4); Lymphocytes # 0.8 K/mcL (0.6-4.6); Lymphocytes % 8.5 %; Mean Corpuscular HGB Conc 32.6 g/dL (31.6-35.5); Mean Corpuscular Hemoglobin 32.6 pg (28.0-33.3); Mean Platelet Volume 11.7 fL (9.4-12.4); Monocytes # 0.7 K/mcL (0.0-1.3); Monocytes % 7.7 %; Neutrophils # 7.3 K/mcL (1.6-8.9); Platelet Count 173 K/mcL (140-400); Red Blood Count 2.39 M/mcL (4.19-5.50); Red Cell Distribution Width 16.2 % (11.5-14.5); Segmented Neutrophils % 82.9 %; White Blood Count 8.9 K/mcL (4.3-11.1)
[2021-11-20 04:25] LABS: Calcium 8.5 mg/dL (8.6-10.3); Potassium 4.1 mEq/L (3.5-5.1)
[2021-11-20] MEDS: Levothyroxine 25 MCG TABLET PO SCH (06:01)
[2021-11-20] MEDS: Torsemide 20 MG TABLET PO SCH (08:14)
[2021-11-20] MEDS: cefTRIAXone 1,000 MG in 0.9 % Sodium Chloride 10 ML IVP SCH (08:15)
[2021-11-20] MEDS: amLODIPine 5 MG TABLET PO SCH (08:15)
[2021-11-20] MEDS: lisinopriL 5 MG TABLET PO SCH (08:16)
[2021-11-20] MEDS: Apixaban 2.5 MG TABLET PO SCH ×2 (08:18→20:27)
[2021-11-21 02:55] LABS: Basophils % 0.2 %; Hematocrit 24.7 % (37.5-50.1); Immature Granulocytes % 1.2 % (0-4); Lymphocytes # 0.7 K/mcL (0.6-4.6); Lymphocytes % 7.8 %; Mean Corpuscular HGB Conc 32.4 g/dL (31.6-35.5); Mean Corpuscular Hemoglobin 32.3 pg (28.0-33.3); Mean Corpuscular Volume 99.6 fL (83.0-100.0); Mean Platelet Volume 11.4 fL (9.4-12.4); Monocytes # 0.7 K/mcL (0.0-1.3); Monocytes % 8.2 %; Neutrophils # 7.2 K/mcL (1.6-8.9); Platelet Count 194 K/mcL (140-400); Red Blood Count 2.48 M/mcL (4.19-5.50); Red Cell Distribution Width 16.1 % (11.5-14.5); Segmented Neutrophils % 82.6 %; White Blood Count 8.7 K/mcL (4.3-11.1)
[2021-11-21 03:03] LABS: Calcium 8.5 mg/dL (8.6-10.3); Magnesium 1.9 mg/dL (1.6-2.6); Potassium 4.1 mEq/L (3.5-5.1)
[2021-11-21] MEDS: Levothyroxine 25 MCG TABLET PO SCH (05:45)
[2021-11-21] MEDS: Torsemide 20 MG TABLET PO SCH (07:45)
[2021-11-21] MEDS: Apixaban 2.5 MG TABLET PO SCH (07:45)
[2021-11-21] MEDS: amLODIPine 5 MG TABLET PO SCH (07:46)
[2021-11-21] MEDS: cefTRIAXone 1,000 MG in 0.9 % Sodium Chloride 10 ML IVP SCH (07:46)
[2021-11-21] MEDS: lisinopriL 5 MG TABLET PO SCH (07:46)
[2021-11-22] MEDS: Levothyroxine 25 MCG TABLET PO SCH (05:45)
[2021-11-22 07:48] LABS: Calcium 8.7 mg/dL (8.6-10.3); Phosphorous 3.3 mg/dL (2.7-4.5); Potassium 4.1 mEq/L (3.5-5.1)
[2021-11-22] MEDS: lisinopriL 5 MG TABLET PO SCH (09:01)
[2021-11-22] MEDS: amLODIPine 5 MG TABLET PO SCH (09:01)
[2021-11-22] MEDS: Torsemide 20 MG TABLET PO SCH (09:01)
[2021-11-22] MEDS: Cefdinir 300 MG CAPSULE PO SCH ×2 (09:03→20:45)
[2021-11-23] MEDS: Levothyroxine 25 MCG TABLET PO SCH (06:32)
[2021-11-23 07:04] LABS: Basophils % 0.5 %; Hematocrit 25.3 % (37.5-50.1); Hemoglobin 8.1 g/dL (12.9-16.9); Immature Granulocytes % 1.4 % (0-4); Lymphocytes # 0.8 K/mcL (0.6-4.6); Lymphocytes % 12.9 %; Mean Corpuscular Hemoglobin 31.9 pg (28.0-33.3); Mean Corpuscular Volume 99.6 fL (83.0-100.0); Mean Platelet Volume 11.1 fL (9.4-12.4); Monocytes # 0.6 K/mcL (0.0-1.3); Monocytes % 9.7 %; Neutrophils # 4.9 K/mcL (1.6-8.9); Platelet Count 200 K/mcL (140-400); Red Blood Count 2.54 M/mcL (4.19-5.50); Red Cell Distribution Width 15.9 % (11.5-14.5); Segmented Neutrophils % 75.5 %; White Blood Count 6.5 K/mcL (4.3-11.1)
[2021-11-23 07:26] LABS: Calcium 8.5 mg/dL (8.6-10.3); Magnesium 1.9 mg/dL (1.6-2.6); Phosphorous 2.9 mg/dL (2.7-4.5); Potassium 4.5 mEq/L (3.5-5.1)
[2021-11-23] MEDS: Cefdinir 300 MG CAPSULE PO SCH (08:41)
[2021-11-23] MEDS: Torsemide 20 MG TABLET PO SCH (08:41)
[2021-11-23] MEDS: lisinopriL 5 MG TABLET PO SCH (08:42)
[2021-11-23] MEDS: amLODIPine 5 MG TABLET PO SCH (08:42)
[2021-11-23 15:55] VITALS: BP 117/77; PULSE 75; TEMP 97.3; O2SAT 98
== END 2021-11-23 16:37 | disposition home or self-care (01) ==
LOC: 4WAOSI 17:16 → EMEROOARM 17:16 → SUATTDRO 11-18 12:41 → 4WAOSI 11-18 13:48
PROVIDERS: ADMIT Internal Medicine; ATTEND Student in an Organized Health Care Education/Training Program